=== PATIENT | male | born 1970 | race Caucasian/White ===

== ENCOUNTER 2016-11-12 19:47 | Observation (INO) | payer SELFPAY ==
[~2016-11-12] VITALS: Ht 185.4 cm; Wt 80.0 kg
[2016-11-12 19:50] VITALS: BP 117/70; PULSE 80; RESP 16; TEMP 97.7; O2SAT 100
[2016-11-12] MEDS ORDERED: SODIUM CHLOR 0.9% 1000 ML INJ 1,000 ML IV ONE ×2 (19:55→20:00)
[2016-11-12] MEDS ORDERED: NALOXONE HCL 2 MG/2 ML VIAL IV PUSH ONE (20:00)
[2016-11-12] MEDS ORDERED: SODIUM CHLORIDE 0.9% FLUSH 5 ML FLUSH IVF PRN (20:00)
[2016-11-12] MEDS ORDERED: SERO400T PO (20:15)
[2016-11-12 20:20] VITALS: O2SAT 96
[2016-11-12] MEDS ORDERED: PROPOFOL 1000 MG/100 ML INJ 100 ML ONE ×2 (20:20→20:21)
[2016-11-12] MEDS ORDERED: NALOXONE INJ 4 MG in DEXTROSE 5% IN WATER INJ 246 ML IV SCH ×2 (20:30)
--- NOTE | 2016-11-12 20:32 | RADRPT ---
EXAM DATE/TIME: 11/12/2016 19:59 [facility] COMPARISON: CHEST SINGLE AP, July 19, 2016, 20:36. INDICATIONS : Post Procedure MEDICAL HISTORY : Unobtainable. SURGICAL HISTORY : Unobtainable. ENCOUNTER: Initial ACUITY: 1 day PAIN SCORE: Non-responsive. LOCATION: Bilateral chest FINDINGS: A single view of the chest demonstrates endotracheal tube in satisfactory position. NG tube in the st omach. There is right perihilar airspace consolidation. Minimal left basilar opacity as well. No effu mike or pneumothorax. CONCLUSION: 1. Endotracheal tube and nasogastric tube in satisfactory position. Right perihilar airspace consolid ation. Bobby Edmond MD on November 12, 2016 at 20:30 Board Certified Radiologist. This report was verified electronically.
[2016-11-12 20:35] LABS: AMPHETAMINE, URINE NEG (NEG); BARBITURATES, URINE NEG (NEG); COCAINE, URINE NEG (NEG)
[2016-11-12 20:38] LABS: AUTOMATED NEUTROPHIL # 6.4 TH/MM3 (1.8-7.7); BASOPHIL # 0.1 TH/MM3 (0-0.2); BASOPHIL % 0.9 % (0.0-2.0); EOSINOPHIL # 0.1 TH/MM3 (0-0.4); EOSINOPHIL % 1.4 % (0.0-4.0); HEMATOCRIT 37.9 % (39.0-51.0); HEMO FLAGS DIFF FINAL; LYMPHOCYTE # 1.6 TH/MM3 (1.0-4.8); MEAN CELL VOLUME 91.3 FL (80.0-100.0); MEAN CORPUSCULAR HEMOGLOBIN 30.9 PG (27.0-34.0); MEAN CORPUSCULAR HGB CONC 33.8 % (32.0-36.0); MONO % 6.9 % (0.0-8.0); NEUT % 72.8 % (16.0-70.0); PLATELET COUNT 232 TH/MM3 (150-450); RED BLOOD COUNT 4.14 MIL/MM3 (4.50-5.90); RED CELL DISTRIBUTION WIDTH 13.6 % (11.6-17.2); WHITE BLOOD COUNT 8.8 TH/MM3 (4.0-11.0)
[2016-11-12 20:39] LABS: BLOOD, URINE NEG (NEG); COMMENT (UR) CULT NOT INDICATED; CULTURE IF INDICATED CULT NOT INDICATED; GLUCOSE,URINE TRACE mg/dL (NEG); HYALINE CAST, URINE 2 /lpf (RARE); KETONE, URINE NEG (NEG); MUCUS URINE FEW /lpf (OCC); NITRITE,URINE NEG (NEG); SQUAMOUS EPITHELIAL CELL URINE <1 /hpf (0-5); URINE COLOR YELLOW (YELLW/STRAW)
[2016-11-12 20:43] VITALS: BP 163/115; PULSE 93; RESP 20; O2SAT 99
[2016-11-12 21:10] LABS: ANION GAP 10 MEQ/L (5-15)
[2016-11-12 21:15] LABS: ACETAMINOPHEN LESS THAN 2.0 MCG/ML (10.0-30.0); ALKALINE PHOSPHATASE 66 U/L (45-117); ALT (GPT) 45 U/L (12-78); AST (GOT) 47 U/L (15-37); BICARBONATE 24.9 MEQ/L (21.0-32.0); BLOOD UREA NITROGEN 17 MG/DL (7-18); CHLORIDE 105 MEQ/L (98-107); CREATINE KINASE 744 U/L (39-308); GLOMERULAR FILTRATION RATE 51 ML/MIN (>89); POTASSIUM 3.7 MEQ/L (3.5-5.1); SODIUM (NA) 140 MEQ/L (136-145); TOTAL BILIRUBIN ADULT 0.3 MG/DL (0.2-1.0)
[2016-11-12 21:41] LABS: CKMB 7.2 NG/ML (0.5-3.6)
[2016-11-12 21:48] LABS: BLOOD GAS BASE EXCESS -1.1 mmol/L (-2-2); BLOOD GAS CARBOXYHEMOGLOBIN 2.2 % (0-4); BLOOD GAS HCO3 25 mmol/L (22-26); BLOOD GAS METHEMOGLOBIN 1.9 % (0-2); BLOOD GAS O2 HGB SATURATION 95 % (90-100); BLOOD GAS OXYGEN CONTENT 17.6 Vol % (12.0-20.0); BLOOD GAS PCO2 53 mmHg (38-42); BLOOD GAS PO2 238 mmHG (61-120); BLOOD GAS TOTAL HGB 12.8 G/DL (12.0-16.0); TEMP CORR TO 98.6
[2016-11-12 21:49] LABS: CRITICAL VALUE YES; DRAW SITE RT RADIAL; FIO2 80 %; NUMBER OF ARTERIAL PUNCTURES 1; OXYGEN DEVICE VENTILATOR; STAT YES; ULNAR PULSE PRESENT; VENT SETTINGS AC16/500 5 PEEP
--- NOTE | 2016-11-12 22:03 | PD ---
HPI Chief Complaint: Alcohol/Drug Intoxication Time Seen by Provider: 19:55 Travel History International Travel<30 days: No Contact w/Intl Traveler<30days: No History of Present Illness HPI The patient is 46 years old. He arrives intubated by EMS. He was walking up stairs in his house and collapsed. His heard a thud and called EMS. She found him unresponsive. Evidently he was cyanotic from the shoulders up. EMS reports GCS 3 on scene with apnea. Pinpoint pupils were observed and Narcan was administered however there is no improvement. Endotracheal tube was placed a 7.5 at 22.5 cm. Initial O2 sats are 83%. The end tidal carbon dioxide was 60 initially. Agonal respirations were observed. No asystole/pulselessness was observed. 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 He snorted the supplement. [facility] Past Medical History Medical History: Denies Significant Hx Depression: Yes (untreated depression) Diminished Hearing: No Psychiatric: Yes Past Surgical History Surgical History: No Previous Surgery Social History Tobacco Use: Yes Substance Use: Yes (DCK) Allergies-Medications (Allergen,Severity, Reaction): Coded Allergies: No Known Allergies (Verified , 11/12/16) Reported Meds & Prescriptions Reported Meds & Active Scripts Active Reported Seroquel (Quetiapine Fumarate) 400 Mg Tab 800 Mg PO HS Review of Systems Except as stated in HPI: all other systems reviewed are Neg Physical Exam Narrative GENERAL: 46 yo M, WNWD, muscular habitus SKIN: Warm and dry. HEAD: Atraumatic. Normocephalic. EYES: Pupils pinpoint. They are responsive to light. ENT: No nasal bleeding or discharge. Mucous membranes pink and moist. NECK: Trachea midline. No JVD. CARDIOVASCULAR: Regular rate and rhythm. No murmur appreciated. RESPIRATORY: Intubated. Breath sounds present bilaterally. GASTROINTESTINAL: Abdomen soft, non-tender, nondistended. Hepatic and splenic margins not palpable. MUSCULOSKELETAL: No obvious deformities. No clubbing. No cyanosis. No edema. NEUROLOGICAL: GCS 3T. PSYCHIATRIC: Unable to assess Data Data Last Documented VS Vital Signs Date Time Temp Pulse Resp B/P Pulse Ox O2 Delivery O2 Flow Rate FiO2 11/12/16 20:43 93 20 163/115 99 Room Air 11/12/16 20:20 4.00 11/12/16 20:19 45 11/12/16 19:50 97.7 Orders Electrocardiogram (11/12/16 19:55) Complete Blood Count With Diff (11/12/16 19:55) Comprehensive Metabolic Panel (11/12/16 19:55) Urinalysis - C+S If Indicated (11/12/16 19:55) Chest, Single Ap (11/12/16 19:55) Ct Brain W/O Iv Contrast(Rout) (11/12/16 19:55) Arterial Blood Gas (Abg) (11/12/16 19:55) Blood Glucose (11/12/16 19:55) Iv Access Insert/Monitor (11/12/16 19:55) Ecg Monitoring (11/12/16 19:55) Oximetry (11/12/16 19:55) Smith-Gastric Tube Insert/Mon (11/12/16 19:55) Urinary Catheter Insert/Apply (11/12/16 19:55) Psych Screen (11/12/16 19:55) Sodium Chloride 0.9% Flush (Ns Flush) (11/12/16 20:00) Sodium Chlor 0.9% 1000 Ml Inj (Ns 1000 M (11/12/16 19:55) Call Poison Control (11/12/16 19:55) Drug Screen, Random Urine (11/12/16 19:55) Alcohol (Ethanol) (11/12/16 19:55) Salicylates (Aspirin) (11/12/16 19:55) Tylenol (Acetaminophen) (11/12/16 19:55) Creatine Kinase (Cpk) (11/12/16 19:55) Troponin I (11/12/16 19:55) Ct Pulmonary Angiogram (11/12/16 19:55) Sodium Chlor 0.9% 1000 Ml Inj (Ns 1000 M (11/12/16 20:00) Naloxone Inj (Narcan Inj) (11/12/16 20:00) Propofol 1000 Mg/100 Ml Inj (Diprivan 10 (11/12/16 20:20) Propofol 1000 Mg/100 Ml Inj (Diprivan 10 (11/12/16 20:21) Naloxone Inj (Narcan Inj) (11/12/16 20:30) CKMB (11/12/16 20:00) CKMB% (11/12/16 20:00) Admit Order (Ed Use Only) (11/12/16 22:27) Labs Laboratory Tests Test 11/12/16 11/12/16 20:00 20:05 White Blood Count 8.8 TH/MM3 Red Blood Count 4.14 MIL/MM3 Hemoglobin 12.8 GM/DL Hematocrit 37.9 % Mean Corpuscular Volume 91.3 FL Mean Corpuscular Hemoglobin 30.9 PG Mean Corpuscular Hemoglobin 33.8 % Concent Red Cell Distribution Width 13.6 % Platelet Count 232 TH/MM3 Mean Platelet Volume 8.5 FL Neutrophils (%) (Auto) 72.8 % Lymphocytes (%) (Auto) 18.0 % Monocytes (%) (Auto) 6.9 % Eosinophils (%) (Auto) 1.4 % Basophils (%) (Auto) 0.9 % Neutrophils # (Auto) 6.4 TH/MM3 Lymphocytes # (Auto) 1.6 TH/MM3 Monocytes # (Auto) 0.6 TH/MM3 Eosinophils # (Auto) 0.1 TH/MM3 Basophils # (Auto) 0.1 TH/MM3 CBC Comment DIFF FINAL Differential Comment Urine Color YELLOW Urine Turbidity CLEAR Urine pH 6.0 Urine Specific [place] 1.035 Urine Protein 30 mg/dL Urine Glucose (UA) TRACE mg/dL Urine Ketones NEG mg/dL Urine Occult Blood NEG Urine Nitrite NEG Urine Bilirubin NEG Urine Urobilinogen 2.0 MG/DL Urine Leukocyte Esterase NEG Urine RBC 3 /hpf Urine WBC 2 /hpf Urine Squamous Epithelial <1 /hpf Cells Urine Hyaline Casts 2 /lpf Urine Mucus FEW /lpf Microscopic Urinalysis Comment CULT NOT INDICATED Sodium Level 140 MEQ/L Potassium Level 3.7 MEQ/L Chloride Level 105 MEQ/L Carbon Dioxide Level 24.9 MEQ/L Anion Gap 10 MEQ/L Blood Urea Nitrogen 17 MG/DL Creatinine 1.48 MG/DL Estimat Glomerular Filtration 51 ML/MIN Rate Random Glucose 210 MG/DL Calcium Level 7.5 MG/DL Total Bilirubin 0.3 MG/DL Aspartate Amino Transf 47 U/L (AST/SGOT) Alanine Aminotransferase 45 U/L (ALT/SGPT) Alkaline Phosphatase 66 U/L Total Creatine Kinase 744 U/L Creatine Kinase MB 7.2 NG/ML Creatine Kinase MB % 1.0 % Troponin I 0.02 NG/ML Total Protein 6.3 GM/DL Albumin 2.9 GM/DL Salicylates Level LESS THAN 1.7 MG/DL Urine Opiates Screen NEG Acetaminophen Level LESS THAN 2.0 MCG/ML Urine Barbiturates Screen NEG Urine Amphetamines Screen NEG Urine Benzodiazepines Screen POS Urine Cocaine Screen NEG Urine Cannabinoids Screen POS Ethyl Alcohol Level 4 MG/DL Blood Gas Puncture Site RT RADIAL Blood Gas Patient Temperature 98.6 Blood Gas HCO3 25 mmol/L Blood Gas Base Excess -1.1 mmol/L Blood Gas Oxygen Saturation 95 % Arterial Blood pH 7.29 Arterial Blood Partial 53 mmHg Pressure CO2 Arterial Blood Partial 238 mmHG Pressure O2 Arterial Blood Oxygen Content 17.6 Vol % Arterial Blood 2.2 % Carboxyhemoglobin Arterial Blood Methemoglobin 1.9 % Blood Gas Hemoglobin 12.8 G/DL Oxygen Delivery Device VENTILATOR Blood Gas Ventilator Setting AC16/500 5 PEEP Blood Gas Inspired Oxygen 80 % MDM Medical Decision Making Medical Screen Exam Complete: Yes Emergency Medical Condition: Yes Differential Diagnosis Hypoxia, arrhythmia, multi organ failure Narrative Course CBC & BMP Diagram 11/12/16 20:00 AST 47 Total creatinine kinase 744 Troponin 0.02 Albumin 2.9 Toxicology positive for benzodiazepines and cannabinoids Tylenol less than 2 Salicylates less than 1.7 Alcohol 4 AB.29/53/25 base excess -1.1 ABG PO2 238 at assist control 16/50 +5 of PEEP with FiO2 80% Last 24 hours Impressions Chest X-Ray 11/12/161954 Signed Impressions: Service Date/Time: Saturday, November 12, 2016 19:59 - CONCLUSION: 1. Endotracheal tube and nasogastric tube in satisfactory position. Right perihilar airspace consolidation. Bobby Edmond MD Pt received 2mg IV Narcan and immediately awoke and tried to self extubate. He was manually restrained and we're able to express with the patient at the bedside. A Narcan drip was initiated. 2 L saline transfused. Case was discussed with hospitalist who requested pack press operator management. Patient reassessed at approximately 9:50 PM: Awake and alert 4. 148/84, HR 90, 96% on RA appropriate anxiety. D/w Dr Rodriguez for pack press operator service. Critical Care Narrative Aggregate critical care time was 45 minutes. Time to perform other separately billable procedures was not included in the critical care time. My time did not include minutes spent treating any other patients simultaneously or on activities that did not directly contribute to the patient's treatment. The services I provided to this patient were to treat and/or prevent clinically significant deterioration that could result in: Multiorgan failure, hypoxic respiratory I provided critical care services requiring my management, as noted below: Chart data review, documentation time, medication orders and management, vital sign assessments/reviewing monitor data, ordering and reviewing lab tests, ordering and interpreting/reviewing x-rays and diagnostic studies, care of the patient and discussion of the patient with the admitting physicians. Diagnosis Primary Impression: Acute respiratory failure with hypoxia Additional Impressions: Polysubstance abuse LOC (loss of consciousness) Opioid overdose Qualified Code: T40.2X1A - Opioid overdose, accidental or unintentional, initial encounter Admitting Information Admitting Physician Requests: Saleem Mccarty MD Nov 12, 2016 22:03
[2016-11-12] MEDS ORDERED: IOHEXOL 350 MG/ML 10 ML VIAL (for RAD DIAG) IV ONE (23:46)
[2016-11-12] MEDS ORDERED: SODIUM CHLOR 0.9% 1000 ML INJ 1,000 ML IV SCH (23:49)
--- NOTE | 2016-11-12 23:49 | HHI.HP ---
HPI Service Critical Care Medicine Primary Care Physician Unknown Admission Diagnosis OD, Resp Failure Diagnosis: Travel History International Travel<30 Days: No Contact w/Intl Traveler <30 Da: No History of Present Illness History of Present Illness HPI The patient is 46 years old. He arrived intubated by EMS. He was walking up stairs in his house and collapsed. His heard a thud and called EMS. She found him unresponsive. Evidently he was cyanotic from the shoulders up. EMS reports GCS 3 on scene with apnea. Pinpoint pupils were observed and Narcan was administered however there is no improvement. Endotracheal tube was placed a 7.5 at 22.5 cm by EMS. Initial O2 sats are 83%. The end tidal carbon dioxide was 60 initially. Agonal respirations were observed. No asystole/ pulselessness was observed. 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 He snorted the supplement. Patient was initially placed on mechanical ventilation following arrival in the ER. He received 2 mg of Narcan IV and his neurologic status improved shortly after. Patient was extubated in the ER Y Dr. Walsh and was placed on a Narcan drip which was subsequently stopped. Critical care was contacted and I evaluated the patient in the ER. At that time he had been off the Narcan drip for about 40 minutes. Patient was completely awake and alert, knew he was in the hospital could give me the date, month and year and stated that this was the second time he used this supplement. He denied any shortness of breath, chest pain, dizziness, visual disturbance, focal weakness, nausea, abdominal pain. History was obtained by reviewing records, discussion with Dr. Stark as well as patient. [facility] Past Medical History Medical History: Denies Significant Hx Depression: Yes (untreated depression) Diminished Hearing: No Psychiatric: Yes Past Surgical History Surgical History: No Previous Surgery Social History Tobacco Use: Yes Substance Use: Yes (DCK) Allergies-Medications (Allergen,Severity, Reaction): Coded Allergies: No Known Allergies (Verified , 11/12/16) Reported Meds & Prescriptions Reported Meds & Active Scripts Active Reported Seroquel (Quetiapine Fumarate) 400 Mg Tab 800 Mg PO HS Review of Systems Except as stated in HPI: all other systems reviewed are Neg Physical Exam Vital Signs Vital Signs Date Time Temp Pulse Resp B/P Pulse Ox O2 Delivery O2 Flow Rate FiO2 11/12/16 20:43 93 20 163/115 99 Room Air 11/12/16 20:20 96 Nasal Cannula 4.00 11/12/16 20:20 96 Nasal Cannula 4 11/12/16 20:19 45 11/12/16 20:04 80 11/12/16 19:50 100 80 11/12/16 19:50 97.7 80 16 117/70 100 Physical Exam Narrative GENERAL: 46 yo M, WNWD, muscular habitus SKIN: Warm and dry. HEAD: Atraumatic. Normocephalic. EYES: Pupils 3mm, reactive to light. ENT: No nasal bleeding or discharge. Mucous membranes pink and moist. NECK: Trachea midline. No JVD. CARDIOVASCULAR: Regular rate and rhythm. No murmur appreciated. RESPIRATORY: Good air entry bilaterally, no wheezing or crackles GASTROINTESTINAL: Abdomen soft, non-tender, nondistended. Hepatic and splenic margins not palpable. MUSCULOSKELETAL: No obvious deformities. No clubbing. No cyanosis. No edema. NEUROLOGICAL: Awake alert oriented 3, nonfocal grossly. Laboratory Laboratory Tests Test 11/12/16 11/12/16 20:00 20:05 White Blood Count 8.8 Red Blood Count 4.14 Hemoglobin 12.8 Hematocrit 37.9 Mean Corpuscular Volume 91.3 Mean Corpuscular Hemoglobin 30.9 Mean Corpuscular Hemoglobin 33.8 Concent Red Cell Distribution Width 13.6 Platelet Count 232 Mean Platelet Volume 8.5 Neutrophils (%) (Auto) 72.8 Lymphocytes (%) (Auto) 18.0 Monocytes (%) (Auto) 6.9 Eosinophils (%) (Auto) 1.4 Basophils (%) (Auto) 0.9 Neutrophils # (Auto) 6.4 Lymphocytes # (Auto) 1.6 Monocytes # (Auto) 0.6 Eosinophils # (Auto) 0.1 Basophils # (Auto) 0.1 CBC Comment DIFF FINAL Differential Comment Urine Color YELLOW Urine Turbidity CLEAR Urine pH 6.0 Urine Specific [place] 1.035 Urine Protein 30 Urine Glucose (UA) TRACE Urine Ketones NEG Urine Occult Blood NEG Urine Nitrite NEG Urine Bilirubin NEG Urine Urobilinogen 2.0 Urine Leukocyte Esterase NEG Urine RBC 3 Urine WBC 2 Urine Squamous Epithelial <1 Cells Urine Hyaline Casts 2 Urine Mucus FEW Microscopic Urinalysis Comment CULT NOT INDICATED Sodium Level 140 Potassium Level 3.7 Chloride Level 105 Carbon Dioxide Level 24.9 Anion Gap 10 Blood Urea Nitrogen 17 Creatinine 1.48 Estimat Glomerular Filtration 51 Rate Random Glucose 210 Calcium Level 7.5 Total Bilirubin 0.3 Aspartate Amino Transf 47 (AST/SGOT) Alanine Aminotransferase 45 (ALT/SGPT) Alkaline Phosphatase 66 Total Creatine Kinase 744 Creatine Kinase MB 7.2 Creatine Kinase MB % 1.0 Troponin I 0.02 Total Protein 6.3 Albumin 2.9 Salicylates Level LESS THAN 1.7 Urine Opiates Screen NEG Acetaminophen Level LESS THAN 2.0 Urine Barbiturates Screen NEG Urine Amphetamines Screen NEG Urine Benzodiazepines Screen POS Urine Cocaine Screen NEG Urine Cannabinoids Screen POS Ethyl Alcohol Level 4 Blood Gas Puncture Site RT RADIAL Blood Gas Patient Temperature 98.6 Blood Gas HCO3 25 Blood Gas Base Excess -1.1 Blood Gas Oxygen Saturation 95 Arterial Blood pH 7.29 Arterial Blood Partial 53 Pressure CO2 Arterial Blood Partial 238 Pressure O2 Arterial Blood Oxygen Content 17.6 Arterial Blood 2.2 Carboxyhemoglobin Arterial Blood Methemoglobin 1.9 Blood Gas Hemoglobin 12.8 Oxygen Delivery Device VENTILATOR Blood Gas Ventilator Setting AC16/500 5 PEEP Blood Gas Inspired Oxygen 80 Result Diagram: 11/12/16199911/12/161999 Imaging Last Impressions Chest X-Ray 11/12/161954 Signed Impressions: Service Date/Time: Saturday, November 12, 2016 19:59 - CONCLUSION: 1. Endotracheal tube and nasogastric tube in satisfactory position. Right perihilar airspace consolidation. Bobby Edmond MD Assessment and Plan Assessment and Plan 46-year-old male with: Overdose with stimulant Encephalopathy which is improved Acute respiratory failure (initially on mechanical ventilation) : Resolved Plan: Neuro: Narcan drip held. Continue to follow neuro status. Patient will be kept in observation unit. Cardiovascular: IV hydration, watch for hypotension. Pulmonary: Supplemental O2 if needed. Bronchodilators when necessary. Extubated earlier. GI/liver: We will order a by mouth diet. Zofran when necessary for nausea. Renal/: IV hydration, follow BUN/creatinine, urine output. ID: No antibiotics at this time Endocrine: Watch for hyperglycemia Prophylaxis: SCDs for DVT prophylaxis, mobilize patient early tomorrow morning. Discussed with Dr. Walsh in ER. Patient will be kept as observation status. Discussed with Dr. Patino was covering for the hospitalist service. Informed her regarding patient being kept under observation status with transfer to hospitalist service. She is aware and will probably discharge the patient in the morning. Patient will not be admitted to the ICU at this time as his neurologic status remains improved off Narcan drip. Discussed Condition With Dr. Walsh, Dr. Patino. Patient and his . Mike Rodriguez MD Nov 12, 2016 23:49
[2016-11-13] MEDS ORDERED: SODIUM CHLORIDE 0.9% FLUSH 5 ML FLUSH FLUSH PRN
[2016-11-13] MEDS ORDERED: METOCLOPRAMIDE HCL 10 MG/2 ML VIAL IV PUSH PRN
[2016-11-13] MEDS ORDERED: NALOXONE HCL 0.4 MG/ML AMP IV PRN
[2016-11-13] MEDS ORDERED: DOCUSATE SODIUM 100 MG CAP PO SCH
[2016-11-13] MEDS ORDERED: ONDANSETRON HCL 4 MG/2 ML VIAL IVP PRN
--- NOTE | 2016-11-13 | RADRPT ---
EXAM DATE/TIME: 11/12/2016 23:43 [facility] COMPARISON: CHEST SINGLE AP, November 12, 2016, 19:59. INDICATIONS : Found unresponsive. Respiratory distress. IV CONTRAST: 74 cc Omnipaque 350 (iohexol) IV RADIATION DOSE: 23.47 CTDIvol (mGy) MEDICAL HISTORY : None SURGICAL HISTORY : None. ENCOUNTER: Initial ACUITY: 1 day PAIN SCALE: 0/10 LOCATION: chest TECHNIQUE: Volumetric scanning of the chest was performed using a pulmonary embolism protocol MIP images were re constructed. Using automated exposure control and adjustment of the mA and/or kV according to patien t size, radiation dose was kept as low as reasonably achievable to obtain optimal diagnostic quality images. FINDINGS: Examination of the pulmonary vasculature demonstrates good filling of the main, lobar and segmental b ranches. There are no filling defects to suggest pulmonary embolism. Multiplanar reconstructions are also unremarkable. There is patchy alveolar disease bilaterally compatible with edema or pneumonia. No pleural effusions are identified. No pulmonary nodules are identified. Examination of the mediastinum demonstrates no abnormally enlarged lymph nodes by CT criteria. No axillary or hilar abnormalities are identified. Co ronary artery calcifications are not present. The visualized upper abdomen demonstrates no abnormalit y. CONCLUSION: 1. No evidence of pulmonary embolism. 2. Bibasilar edema versus pneumonia Reymundo Rivero MD on November 12, 2016 at 23:57 Board Certified Radiologist. This report was verified electronically.
--- NOTE | 2016-11-13 00:04 | RADRPT ---
EXAM DATE/TIME: 11/12/2016 23:39 [facility] COMPARISON: CT BRAIN W/O CONTRAST, July 19, 2016, 20:20. INDICATIONS : Found unresponsive; altered mental status. RADIATION DOSE: 52.57 CTDIvol (mGy) MEDICAL HISTORY : None SURGICAL HISTORY : None. ENCOUNTER: Initial ACUITY: 1 day PAIN SCALE: 0/10 LOCATION: cranial TECHNIQUE: Multiple contiguous axial images were obtained of the head. Using automated exposure control and adj ustment of the mA and/or kV according to patient size, radiation dose was kept as low as reasonably a chievable to obtain optimal diagnostic quality images. FINDINGS: CEREBRUM: The ventricles are normal for age. No evidence of midline shift, mass lesion, hemorrhage or acute in farction. No extra-axial fluid collections are seen. POSTERIOR FOSSA: The cerebellum and brainstem are intact. The 4th ventricle is midline. The cerebellopontine angle i s unremarkable. EXTRACRANIAL: The visualized portion of the orbits is intact. There is benign-appearing mucosal disease in the maxi llary antra bilaterally. SKULL: The calvaria is intact. No evidence of skull fracture. CONCLUSION: 1. No evidence of acute intracranial pathology. No masses are identified. Reymundo Rivero MD on November 13, 2016 at 0:01 Board Certified Radiologist. This report was verified electronically.
[2016-11-13 02:50] VITALS: BP 140/60; PULSE 73; RESP 18; O2SAT 99
[2016-11-13 03:20] VITALS: BP 129/70; PULSE 80; RESP 20; TEMP 98.3; O2SAT 94
[2016-11-13 03:25] VITALS: PULSE 76
--- NOTE | 2016-11-13 04:46 | HHI.PR ---
Subjective Remarks noted to be sweating - reports this is his normal Objective Vital Signs Date Time Temp Pulse Resp B/P Pulse Ox O2 Delivery O2 Flow Rate FiO2 11/13/16 03:25 76 11/13/16 03:20 98.3 80 20 129/70 94 11/13/16 02:50 73 18 140/60 99 Room Air 11/12/16 20:43 93 20 163/115 99 Room Air 11/12/16 20:20 96 Nasal Cannula 4.00 11/12/16 20:20 96 Nasal Cannula 4 11/12/16 20:19 45 11/12/16 20:04 80 11/12/16 19:50 100 80 11/12/16 19:50 97.7 80 16 117/70 100 I/O 11/12/16 11/12/16 11/12/16 11/13/16 11/13/16 11/13/16 07:00 15:00 23:00 07:00 15:00 23:00 Intake Total 100 ml Balance 100 ml Intake IV Total 100 ml Result Diagram: 11/12/16199911/12/161999 Imaging Last 48 hours Impressions Chest X-Ray 11/12/161954 Signed Impressions: Service Date/Time: Saturday, November 12, 2016 19:59 - CONCLUSION: 1. Endotracheal tube and nasogastric tube in satisfactory position. Right perihilar airspace consolidation. Bobby Edmond MD Objective Remarks Awake, alert, oriented. Sleeping in bed. Skin: Diaphoretic. CVS: Regular heart rate and rhythm. No murmur appreciated. Lungs: Good equal air entry bilaterally. No wheezing or rales. Abdomen: Soft, nontender, no rebound, no guarding. Extremities: No calf asymmetry or edema. No track pedro. Neurology: Appropriate mood and affect. Pleasant. Awake, alert, oriented. Motor and sensory grossly normal. No focal deficits. A/P Problem List: (1) Polysubstance abuse ICD Code: F19.10 (2) Acute respiratory failure with hypoxia ICD Code: J96.01 Assessment and Plan Impression: Syncopesecondary to dietary supplements/ stimulants adverse reaction Use of dietary/exercise supplementspatient reports that he drank which includes mixture of multiple dietary supplements for the purpose of exercise enhancement. He reports this includes caffeine powder, creatinine powder, beta alanine, Yoheme, DMHA, and citrate malate as a stimulant. Respiratory failurerequired intubation on the field. Extubated while in ER as his mentation improved after Narcan treatment. Plan: Patient was evaluated by remote operations producer at the bedside overnight. Patient has been awake, alert, oriented since extubation prior to the remote operations producer arrival. Narcan drip was already discontinued by then. It has been 8 hours since. Patient is noted to be ambulating well in the observation unit, able to tolerate by mouth intake. Patient states he takes the above regimen for exercise enhancement. He states DMHA is the only new item on the list that he has not taken previously. He suspects this is the cause of all this. He denies any suicidal or homicidal ideation. He denies snorting the powders. He states he simply mixed them and drank. Denies having any ketamine in these supplements - though he cant be sure of contaminants. Patient is hemodynamically stable. Discharge patient home today. Patient is advised to wait until the comes and pick him up. Advised to follow-up with primary care doctor. If there is any concerning symptoms, advised to come back to hospital. Hydrate thoroughly. Discharge Planning discharge today now, soon as comes to pick him up - around 6:00a.Rory Clifford MD Nov 13, 2016 04:46
[2016-11-13] MEDS ORDERED: SODIUM CHLORIDE 0.9% FLUSH 5 ML FLUSH FLUSH SCH (09:00)
--- NOTE | 2016-11-13 14:15 | EKG ---
Date Performed: 11/12/2016 Time Performed: 20:08:19 PTAGE: 46 years EKG: Sinus rhythm Prominent precordial voltage Since previous tracing, HR is faster, as previous HR was 41. Previous t racing showed early repolarization changes with prominent voltage, but no repolarization changes are seen on this tracing ABNORMAL ECG PREVIOUS TRACING : 07/19/2016 22.20 DOCTOR: Ward Galeano Interpretating Date/Time 11/13/2016 15:31:40
== END 2016-11-13 07:52 | disposition home or self-care (01) ==
LOC: NEPE 19:47 → NEDA 22:29 → INTOOBSV 22:29 → NEPFCDU 11-13 03:03 → UNDODISIN 11-13 07:52
PROVIDERS: ADMIT Hospitalist; ATTEND Hospitalist
DX: T40.2X1A Poisoning by other opioids, accidental (unintentional), initial encounter (principal); J96.01 Acute respiratory failure with hypoxia; F41.9 Anxiety disorder, unspecified; F32.9 Major depressive disorder, single episode, unspecified; R94.31 Abnormal electrocardiogram [ECG] [EKG]; Z72.0 Tobacco use
CPT/HCPCS: 36600; 51702; 70450; 71010; 71275; 80053; 80307; 80320; 81001; 82550; 82552; 82805; 84484; 85025; 93005; 96361; 96365; 96376; 99291; G0378; J2310; J7030; J7060; Q9967; 80329; G0480

== ENCOUNTER 2016-11-22 22:22 | Inpatient (IN) | payer SELFPAY ==
[~2016-11-22] VITALS: Ht 182.9 cm; Wt 97.6 kg
[~2016-11-22 22:22] MED LIST: SERO400T PO
[2016-11-22] MEDS ORDERED: LORazepam 2 MG/ML VIAL ONE (22:28)
[2016-11-22 22:30] VITALS: RESP 40; O2SAT 94
[2016-11-22] MEDS ORDERED: LORazepam 2 MG/ML VIAL IM ONE ×3 (22:30→22:45)
[2016-11-22 22:36] VITALS: BP 188/79; PULSE 74; RESP 40; TEMP 98.7; O2SAT 100
[2016-11-22] MEDS ORDERED: SODIUM CHLORIDE 0.9% FLUSH 5 ML FLUSH IVF PRN (22:45)
[2016-11-22] MEDS ORDERED: LORazepam 2 MG/ML VIAL IV PUSH ONE ×4 (23:00→23:15)
[2016-11-22] MEDS ORDERED: SODIUM CHLOR 0.9% 1000 ML INJ 1,000 ML IV ONE ×2 (23:15)
[2016-11-22 23:19] LABS: AUTOMATED NEUTROPHIL # 18.5 TH/MM3 (1.8-7.7); BASOPHIL # 0.1 TH/MM3 (0-0.2); BASOPHIL % 0.5 % (0.0-2.0); EOSINOPHIL % 0.1 % (0.0-4.0); HEMATOCRIT 41.7 % (39.0-51.0); HEMO FLAGS DIFF FINAL; LYMPH % 8.4 % (9.0-44.0); LYMPHOCYTE # 1.8 TH/MM3 (1.0-4.8); MEAN CELL VOLUME 87.3 FL (80.0-100.0); MEAN CORPUSCULAR HEMOGLOBIN 30.2 PG (27.0-34.0); MEAN CORPUSCULAR HGB CONC 34.6 % (32.0-36.0); MONO % 6.7 % (0.0-8.0); NEUT % 84.3 % (16.0-70.0); PLATELET COUNT 511 TH/MM3 (150-450); RED BLOOD COUNT 4.78 MIL/MM3 (4.50-5.90); RED CELL DISTRIBUTION WIDTH 13.2 % (11.6-17.2)
[2016-11-22 23:28] LABS: APTT (PATIENT) 27.9 SEC (24.3-30.1); INTERNATIONAL NORMALIZED RATIO 1.1 RATIO
[2016-11-22 23:45] LABS: ACETAMINOPHEN LESS THAN 2.0 MCG/ML (10.0-30.0); ALKALINE PHOSPHATASE 65 U/L (45-117); ALT (GPT) 41 U/L (12-78); ANION GAP 16 MEQ/L (5-15); AST (GOT) 33 U/L (15-37); BICARBONATE 15.6 MEQ/L (21.0-32.0); BLOOD UREA NITROGEN 14 MG/DL (7-18); CHLORIDE 92 MEQ/L (98-107); CREATINE KINASE 415 U/L (39-308); GLOMERULAR FILTRATION RATE 70 ML/MIN (>89); TOTAL BILIRUBIN ADULT 0.7 MG/DL (0.2-1.0)
[2016-11-22 23:48] LABS: POTASSIUM 3.7 MEQ/L (3.5-5.1)
[2016-11-22 23:50] LABS: SODIUM (NA) 124 MEQ/L (136-145)
[2016-11-23] VITALS (10 sets, daily range): BP systolic 137–184; BP diastolic 63–108; PULSE 7–81; RESP 16–27; TEMP 98.2–98.8; O2SAT 95–100
[2016-11-23 00:02] LABS: CKMB 8.3 NG/ML (0.5-3.6)
--- NOTE | 2016-11-23 00:12 | HHI.HP ---
HPI Service Critical Care Medicine Primary Care Physician Unknown Admission Diagnosis Diagnosis: Travel History International Travel<30 Days: No Contact w/Intl Traveler <30 Da: No Traveled to Known Affected Are: No History of Present Illness 46-year-old male who likes to experiment with shoe designer drugs presents for altered mental status. According to EMS patient's called 911 because the patient admits smoking K2. Patient was recently admitted November 12 after another ingestion of unknown substance, he required to be intubated and subsequently was extubated fairly quickly and left the hospital within 23 hours. In the emergency department he was extremely agitated and tremulous he received 8 mg of Ativan and 50 mg of IV Benadryl. 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 Past Surgical History None Reported Medications Reported Meds & Active Scripts Active Reported Seroquel (Quetiapine Fumarate) 400 Mg Tab 800 Mg PO HS Active Ordered Medications Current Medications Medications (Trade) Dose Ordered Sig/Ray Route PRN Reason Start Time Stop Time Status Last Admin Dose Admin IV Flush 2 ml 2 ml UNSCH PRN IVF FLUSH AFTER USING IV ACCESS 11/22/16 22:45 Sodium Chloride (NS 1000 ml Inj) 1,000 ml @ 185 mls/hr Q5H25M IV 11/23/16 00:54 IV Flush (NS Flush) 2 ml UNSCH PRN IV FLUSH FLUSH AFTER USING IV ACCESS 11/23/16 01:00 IV Flush (NS Flush) 2 ml BID IV FLUSH 11/23/16 09:00 Acetaminophen (Tylenol) 650 mg Q6H PRN PO PAIN 1-10 AND/OR FEVER >101F 11/23/16 01:00 Famotidine (Pepcid Inj) 20 mg Q12HR IV PUSH 11/23/16 09:00 Lorazepam (Ativan Inj) 2 mg Q2H PRN IV Agitation/Sedation 11/23/16 01:00 Ondansetron HCl (Zofran Inj) 4 mg Q6H PRN IV NAUSEA OR VOMITING 11/23/16 01:00 Metoclopramide HCl (Reglan Inj) 10 mg Q6H PRN IV NAUSEA OR VOMITING 11/23/16 01:00 Heparin Sodium (Porcine) (Heparin Inj) 5,000 units Q8H SQ 11/23/16 01:00 Miscellaneous Information 1 [id number] XX 11/23/16 01:00 Chlorhexidine Gluconate (Chlorhexidine 2% Cloth) 3 pack Taper DAILY@04 TOP 11/23/16 04:00 11/19/17 03:59 Chlorhexidine Gluconate (Chlorhexidine 2% Cloth) 3 pack UNSCH PRN TOP HYGIENIC CARE 11/23/16 01:00 Family History Noncontributory 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 Somnolent SKIN: Warm and dry. HEAD: Normocephalic. EYES: No scleral icterus. No injection or drainage. NECK: Supple, trachea midline. No JVD or lymphadenopathy. CARDIOVASCULAR: Regular rate and rhythm without murmurs, gallops, or rubs. RESPIRATORY: Breath sounds equal bilaterally. No accessory muscle use. GASTROINTESTINAL: Abdomen soft, non-tender, nondistended. MUSCULOSKELETAL: No cyanosis, or edema. BACK: Nontender without obvious deformity. No CVA tenderness. EXTREMITIES: Nonfocal Laboratory Laboratory Tests Test 11/22/16 22:44 White Blood Count 22.0 Red Blood Count 4.78 Hemoglobin 14.4 Hematocrit 41.7 Mean Corpuscular Volume 87.3 Mean Corpuscular Hemoglobin 30.2 Mean Corpuscular Hemoglobin 34.6 Concent Red Cell Distribution Width 13.2 Platelet Count 511 Mean Platelet Volume 8.4 Neutrophils (%) (Auto) 84.3 Lymphocytes (%) (Auto) 8.4 Monocytes (%) (Auto) 6.7 Eosinophils (%) (Auto) 0.1 Basophils (%) (Auto) 0.5 Neutrophils # (Auto) 18.5 Lymphocytes # (Auto) 1.8 Monocytes # (Auto) 1.5 Eosinophils # (Auto) 0.0 Basophils # (Auto) 0.1 CBC Comment DIFF FINAL Differential Comment Prothrombin Time 12.0 Prothromb Time International 1.1 Ratio Activated Partial 27.9 Thromboplast Time Salicylates Level LESS THAN 1.7 Sodium Level 124 Potassium Level 3.7 Chloride Level 92 Carbon Dioxide Level 15.6 Anion Gap 16 Blood Urea Nitrogen 14 Creatinine 1.13 Estimat Glomerular Filtration 70 Rate Random Glucose 98 Calcium Level 8.2 Total Bilirubin 0.7 Aspartate Amino Transf 33 (AST/SGOT) Alanine Aminotransferase 41 (ALT/SGPT) Alkaline Phosphatase 65 Total Creatine Kinase 415 Creatine Kinase MB 8.3 Creatine Kinase MB % 2.0 Total Protein 6.8 Albumin 3.2 Thyroid Stimulating Hormone 1.990 3rd Gen Acetaminophen Level LESS THAN 2.0 Ethyl Alcohol Level LESS THAN 3 Result Diagram: 11/22/16224311/22/162243 Assessment and Plan Problem List: (1) Substance abuse ICD Code: F19.10 Status: Acute (2) LOC (loss of consciousness) ICD Code: R40.20 Status: Acute Assessment and Plan Intoxication with stimulant drugs - Ativan when necessary - Geodon - IV fluids - Telemetry - Psych evaluation Junctional rhythm - Continue telemetry - Hemodynamically stable - Follow-up troponins - Series of EKGs DVT GI prophylaxis - Subcutaneous heparin and Pepcid Critical Care: The total critical care time was 35 minutes. Time to perform other separately billable procedures was not included in the critical care time. Babar Cabrera MD Nov 23, 2016 00:12
--- NOTE | 2016-11-23 00:17 | PD ---
HPI Chief Complaint: Altered Mental Status Time Seen by Provider: 22:27 Travel History International Travel<30 days: No Contact w/Intl Traveler<30days: No Traveled to known affect area: No History of Present Illness HPI Patient 46-year-old male presents emergency department for altered mental status. According to EMS patient's called 911 because the patient was acting strange after she saw him snorting/smoking something. Suspicion from EMS is K2. Review the records show the patient was here 2 weeks ago after another ingestion had to be intubated and subsequently was extubated fairly quickly and left the hospital within 23 hours. Patient on arrival is awake and mildly tremulous in all 4 extremities. Does not communicate orally but does scream in pain when a 14-gauge needle was placed in his right AC fossa. PFSH Past Medical History Medical History: Unable to Obtain Anxiety: Yes Depression: No Cancer: No Cardiovascular Problems: No Chemotherapy: No Diminished Hearing: No Endocrine: No Genitourinary: No Immune Disorder: No Musculoskeletal: No Neurologic: No Psychiatric: Yes Respiratory: No Radiation Therapy: No Tetanus Vaccination: Unknown Influenza Vaccination: No Past Surgical History Surgical History: Unable to Obtain Social History Alcohol Use: Yes Tobacco Use: Yes Substance Use: Yes (MARIJUANA) Allergies-Medications (Allergen,Severity, Reaction): Coded Allergies: No Known Allergies (Verified , 11/22/16) Reported Meds & Prescriptions Reported Meds & Active Scripts Active Reported Seroquel (Quetiapine Fumarate) 400 Mg Tab 800 Mg PO HS Review of Systems ROS Limitations: Altered Mental Status Physical Exam Exam Limitations: Altered Mental Status Narrative GENERAL: WD/WN in nad. SKIN: Warm and dry. HEAD: Atraumatic. Normocephalic. EYES: Pupils equal and round. No scleral icterus. No injection or drainage. ENT: No nasal bleeding or discharge. Mucous membranes pink and moist. NECK: Trachea midline. No JVD. CARDIOVASCULAR: Regular rate and rhythm. RESPIRATORY: No accessory muscle use. Clear to auscultation. Breath sounds equal bilaterally. GASTROINTESTINAL: Abdomen soft, non-tender, nondistended. Hepatic and splenic margins not palpable. MUSCULOSKELETAL: Extremities without clubbing, cyanosis, or edema. No obvious deformities. NEUROLOGICAL: Awake and alert. tracks people with eyes. GCS is 12 (E4,M5,V3) PSYCHIATRIC: Appropriate mood and affect; insight and judgment normal. Data Data Last Documented VS Vital Signs Date Time Temp Pulse Resp B/P Pulse Ox O2 Delivery O2 Flow Rate FiO2 11/23/16 00:00 98.6 70 26 146/63 100 Nasal Cannula 2 Orders Lorazepam Inj (Ativan Inj) (11/22/16 22:30) Lorazepam Inj (Ativan Inj) (11/22/16 22:28) Electrocardiogram (11/22/16 22:38) Complete Blood Count With Diff (11/22/16 22:38) Comprehensive Metabolic Panel (11/22/16 22:38) Creatine Kinase (Cpk) (11/22/16 22:38) Prothrombin Time / Inr (Pt) (11/22/16 22:38) Act Partial Throm Time (Ptt) (11/22/16 22:38) Thyroid Stimulating Hormone (11/22/16 22:38) Blood Glucose (11/22/16 22:38) Ecg Monitoring (11/22/16 22:38) Iv Access Insert/Monitor (11/22/16 22:38) Oximetry (11/22/16 22:38) Sodium Chloride 0.9% Flush (Ns Flush) (11/22/16 22:45) Alcohol (Ethanol) (11/22/16 22:38) Salicylates (Aspirin) (11/22/16 22:38) Tylenol (Acetaminophen) (11/22/16 22:38) Lorazepam Inj (Ativan Inj) (11/22/16 22:45) Lorazepam Inj (Ativan Inj) (11/22/16 22:45) Lorazepam Inj (Ativan Inj) (11/22/16 23:00) Lorazepam Inj (Ativan Inj) (11/22/16 23:00) Lorazepam Inj (Ativan Inj) (11/22/16 23:00) Lorazepam Inj (Ativan Inj) (11/22/16 23:15) Sodium Chlor 0.9% 1000 Ml Inj (Ns 1000 M (11/22/16 23:15) Sodium Chlor 0.9% 1000 Ml Inj (Ns 1000 M (11/22/16 23:15) Ckmb (Isoenzyme) Profile (11/22/16 23:40) Troponin I (11/22/16 23:40) CKMB (11/22/16 22:44) CKMB% (11/22/16 22:44) Diphenhydramine Inj (Benadryl Inj) (11/23/16 00:00) Osmolality,Serum (11/23/16 00:12) Ua Includes Microscopic (11/23/16 00:12) Drug Screen, Random Urine (11/23/16 00:14) Ct Brain W/O Iv Contrast(Rout) (11/23/16 ) Admit Order (Ed Use Only) (11/23/16 ) Labs Laboratory Tests Test 11/22/16 11/23/16 22:44 00:10 White Blood Count 22.0 TH/MM3 Red Blood Count 4.78 MIL/MM3 Hemoglobin 14.4 GM/DL Hematocrit 41.7 % Mean Corpuscular Volume 87.3 FL Mean Corpuscular Hemoglobin 30.2 PG Mean Corpuscular Hemoglobin 34.6 % Concent Red Cell Distribution Width 13.2 % Platelet Count 511 TH/MM3 Mean Platelet Volume 8.4 FL Neutrophils (%) (Auto) 84.3 % Lymphocytes (%) (Auto) 8.4 % Monocytes (%) (Auto) 6.7 % Eosinophils (%) (Auto) 0.1 % Basophils (%) (Auto) 0.5 % Neutrophils # (Auto) 18.5 TH/MM3 Lymphocytes # (Auto) 1.8 TH/MM3 Monocytes # (Auto) 1.5 TH/MM3 Eosinophils # (Auto) 0.0 TH/MM3 Basophils # (Auto) 0.1 TH/MM3 CBC Comment DIFF FINAL Differential Comment Prothrombin Time 12.0 SEC Prothromb Time International 1.1 RATIO Ratio Activated Partial 27.9 SEC Thromboplast Time Salicylates Level LESS THAN 1.7 MG/DL Sodium Level 124 MEQ/L Potassium Level 3.7 MEQ/L Chloride Level 92 MEQ/L Carbon Dioxide Level 15.6 MEQ/L Anion Gap 16 MEQ/L Blood Urea Nitrogen 14 MG/DL Creatinine 1.13 MG/DL Estimat Glomerular Filtration 70 ML/MIN Rate Random Glucose 98 MG/DL Serum Osmolality 265 MOSM/KG Calcium Level 8.2 MG/DL Total Bilirubin 0.7 MG/DL Aspartate Amino Transf 33 U/L (AST/SGOT) Alanine Aminotransferase 41 U/L (ALT/SGPT) Alkaline Phosphatase 65 U/L Total Creatine Kinase 415 U/L Creatine Kinase MB 8.3 NG/ML Creatine Kinase MB % 2.0 % Troponin I LESS THAN 0.02 NG/ML Total Protein 6.8 GM/DL Albumin 3.2 GM/DL Thyroid Stimulating Hormone 1.990 uIU/ML 3rd Gen Acetaminophen Level LESS THAN 2.0 MCG/ML Ethyl Alcohol Level LESS THAN 3 MG/DL Urine Color LIGHT-YELLOW Urine Turbidity CLEAR Urine pH 7.0 Urine Specific [place] 1.004 Urine Protein NEG mg/dL Urine Glucose (UA) NEG mg/dL Urine Ketones NEG mg/dL Urine Occult Blood NEG Urine Nitrite NEG Urine Bilirubin NEG Urine Urobilinogen LESS THAN 2.0 MG/DL Urine Leukocyte Esterase NEG Urine RBC LESS THAN 1 /hpf Urine Opiates Screen NEG Urine Barbiturates Screen NEG Urine Amphetamines Screen NEG Urine Benzodiazepines Screen NEG Urine Cocaine Screen NEG Urine Cannabinoids Screen NEG MDM Medical Decision Making Medical Screen Exam Complete: Yes Emergency Medical Condition: Yes Interpretation(s) EKG shows junctional rhythm with inverted P waves in lead 2 with short WA interval. No STT changes. Intervals otherwise WNL. This is new change since . Differential Diagnosis Altered mental status, drug overdose, agitated delirium, intracranial abnormality, acidosis, alkalosis, Narrative Course Patient roomed in the emergency department, altered mental status mildly tremulous. Inconsistent with seizure activity. He is able to talk and track me around the room but does not follow commands. He was given a total of 8 mg of Ativan IV as well as 50 of Benadryl IV, I paged Dr. Cabrera of the ICU service as the patient is hyponatremic and needs to be evaluated for ICU placement. Patient will need a CT of his head and I'm considering intubating the patient to have this procedure done. Dr. Cabrera arrives and while patient had no response to ativan, after benadryl given, patient had rodriguez placed with large UOP and now he is more relaxed. Intubation withheld at this point. Patient osmol gap is 7. Does have metabolic acidosis with AG. No suggestion of methanol, ethalyne glycol or isopropyl injestion in history. 2L of fluidgiven Patient seen and examined by Dr. Cabrera who gage admit. Patient taken to CT scanner, mental status is improving, now talking, still very confused. CT head negative. Last [address] 11/23/16 0000 Signed Impressions: Service Date/Time: Wednesday, November 23, 2016 02:35 - CONCLUSION: 1. No acute intracranial abnormalities. Mucosal thickening in the paranasal sinuses. Bobby Edmond MD Critical Care Narrative Critical Care: The total critical care time was 30 minutes. Time to perform other separately billable procedures was not included in the critical care time. Diagnosis Primary Impression: Altered mental status Qualified Code: R40.2423 - Carroll coma scale total score 9-12, at hospital admission Additional Impressions: Ingested substance, unknown drug Dehydration Junctional rhythm Hyponatremia Metabolic acidosis Admitting Information Admitting Physician Requests: Admit Condition: Stable Bran Abdalla MD Nov 23, 2016 00:17
[2016-11-23 00:27] LABS: BLOOD, URINE NEG (NEG); GLUCOSE,URINE NEG (NEG); KETONE, URINE NEG (NEG); NITRITE,URINE NEG (NEG); URINE COLOR LIGHT-YELLOW (YELLW/STRAW)
[2016-11-23 00:35] LABS: AMPHETAMINE, URINE NEG (NEG); BARBITURATES, URINE NEG (NEG); COCAINE, URINE NEG (NEG)
[2016-11-23] MEDS ORDERED: SODIUM CHLORIDE 0.9% FLUSH 5 ML FLUSH IV FLUSH PRN (01:00)
[2016-11-23] MEDS ORDERED: CHLORHEXIDINE GLUCONATE 2 % 1 PACK (2 CLOTHS) TOP PRN (01:00)
[2016-11-23] MEDS ORDERED: METOCLOPRAMIDE HCL 10 MG/2 ML VIAL IV PRN (01:00)
[2016-11-23] MEDS ORDERED: ONDANSETRON HCL 4 MG/2 ML VIAL IV PRN (01:00)
[2016-11-23] MEDS ORDERED: MISCELLANEOUS NURSING INFORMATION XX SCH (01:00)
[2016-11-23] MEDS ORDERED: RESP: ALBUTEROL 2.5 MG/IPRATROPIUM 0.5 MG NEB (PRN) INH (01:00)
[2016-11-23] MEDS ORDERED: ACETAMINOPHEN 325 MG TAB PO PRN (01:00)
[2016-11-23] MEDS: SODIUM CHLOR 0.9% 1000 ML INJ 1,000 ML IV SCH ×3 (01:47→11:44)
[2016-11-23] MEDS: LORazepam 2 MG/ML VIAL IV PRN ×4 (02:22→08:30)
[2016-11-23] MEDS: HEPARIN SODIUM - SQ 10,000 UNITS/ML VIAL SQ SCH ×2 (02:22→08:31)
--- NOTE | 2016-11-23 02:51 | RADRPT ---
EXAM DATE/TIME: 11/23/2016 02:35 [facility] COMPARISON: No previous studies available for comparison. INDICATIONS : Altered mental status. RADIATION DOSE: 42.32 CTDIvol (mGy) MEDICAL HISTORY : Non-responsive. SURGICAL HISTORY : Non-responsive. ENCOUNTER: Initial ACUITY: 1 day PAIN SCALE: Non-responsive LOCATION: Bilateral cranial TECHNIQUE: Multiple contiguous axial images were obtained of the head. Using automated exposure control and adj ustment of the mA and/or kV according to patient size, radiation dose was kept as low as reasonably a chievable to obtain optimal diagnostic quality images. FINDINGS: CEREBRUM: The ventricles are normal for age. No evidence of midline shift, mass lesion, hemorrhage or acute in farction. No extra-axial fluid collections are seen. POSTERIOR FOSSA: The cerebellum and brainstem are intact. The 4th ventricle is midline. The cerebellopontine angle i s unremarkable. EXTRACRANIAL: The visualized portion of the orbits is intact. SKULL: The calvaria is intact. No evidence of skull fracture. CONCLUSION: 1. No acute intracranial abnormalities. Mucosal thickening in the paranasal sinuses. Bobby Edmond MD on November 23, 2016 at 2:47 Board Certified Radiologist. This report was verified electronically.
[2016-11-23] MEDS ORDERED: diphenhydrAMINE HCL 50 MG/ML VIAL IV PUSH ONE ×2 (03:15)
[2016-11-23] MEDS ORDERED: ZIPRASIDONE MESYLATE 20 MG VIAL IM ONE (03:15)
[2016-11-23] MEDS ORDERED: CHLORHEXIDINE GLUCONATE 2 % 1 PACK (2 CLOTHS) TOP SCH (04:00)
[2016-11-23 04:35] LABS: INDIRECT BILIRUBIN 0.5 MG/DL (0.0-0.8); TOTAL BILIRUBIN ADULT 0.7 MG/DL (0.2-1.0)
[2016-11-23 04:48] LABS: CKMB 19.6 NG/ML (0.5-3.6)
[2016-11-23] MEDS ORDERED: SODIUM CHLORIDE 0.9% FLUSH 5 ML FLUSH IV FLUSH SCH (09:00)
[2016-11-23] MEDS ORDERED: FAMOTIDINE 20 MG/2 ML VIAL IV PUSH SCH (09:00)
--- NOTE | 2016-11-23 10:09 | EKG ---
Date Performed: 11/23/2016 Time Performed: 00:02:37 PTAGE: 46 years EKG: ECTOPIC ATRIAL RHYTHM NONSPECIFIC ST & T-WAVE ABNORMALITY ABNORMAL RHYTHM ECG PREVIOUS TRACING : 11/12/2016 20.08 DOCTOR: Devon Melendez Interpretating Date/Time 11/23/2016 10:08:01
--- NOTE | 2016-11-23 10:12 | EKG ---
Date Performed: 11/22/2016 Time Performed: 23:05:11 PTAGE: 46 years EKG: ectopic atrial rhythm ST ELEVATION CONSISTENT WITH INJURY, PERICARDITIS, OR EARLY REPOLARIZ ATION NONSPECIFIC ST & T-WAVE ABNORMALITY ABNORMAL ECG PREVIOUS TRACING : 11/12/2016 20.08 DOCTOR: Devon Melendez Interpretating Date/Time 11/23/2016 10:10:42
--- NOTE | 2016-11-23 13:55 | PD.CONS ---
Provisional Diagnosis Admission Date Nov 23, 2016 at 00:34 Prescott I. Substance induced mood disorder, syntectic cannabis use disorder, amphetamines use, history of depression Prescott II. Deferred Prescott III. He denies Prescott IV. History of drug use disorder Prescott V. 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 According to EMS patient's called 911 because the patient admits smoking K2. Patient was recently admitted November 12 after another ingestion of unknown substance, he required to be intubated and subsequently was extubated fairly quickly and left the hospital within 23 hours. In the emergency department he was extremely agitated and tremulous he received 8 mg of Ativan and 50 mg of IV Benadryl to help to calm him down, he was admitted in ICU, consulted to psychiatry to assess suicidal intentions in his recent overdoses. Patient was seen and evaluated in the ICU, he was found calm, cooperative, a little bit sedated, he was restrained in 4 point, I spoke with the nurse in charge with decided to loosening him since patient seemed to be coherent, relevant, logical. On psychiatric evaluation the patient states that he doesn't even remember the reason he is here, last thing that he remembers is laying on the couch in his house feeling stomach sick after using some K2 and amphetamine like drugs. Patient says that he has been sober for many months, but in the last weeks he has been using again K2 and some amphetamine like drugs that he gets on the Internet. Patient states that he uses the drugs to increase his energy and his physical strength "because I work out very hard in the gym". But, he also states that drugs help him to be more social and more active. He denies overdosing with drugs with suicidal intentions, patient says that he has a very happy life, 2 kids that he loves, one is 3 years in another 6 years old, and his . He enjoyed his job and helping people. At this moment he denies depression, denies anxiety, denies anhedonia, denies hopelessness, denies helplessness, denies suicidal and homicidal ideation. He says that he has been in [facility] patient for many years and he is prescribed with Seroquel 400 mg at bedtime to help him with sleep and with mood, he has been in this same dose, stable, for many years now, and he says that he takes it religiously. Patient is oriented 3, no attention deficit, no gross cognitive impairment, no fluctuation of consciousness observed at this moment. His Sujatha Ignacio, who was interviewing separately, describes the patient as a very loyal, hard working, love by his friend and family, man. She does not saying that he overdoses with suicidal intention, but she says that he likes to use this "substances"to feel better and to increase energy to work out. She doesn't have any safety concern at this moment. She says that she has the tools and the power to help the patient to stop using this drug, especially because she has involved his family in the situation at this moment. She is okay with discharging the patient, she will make sure to continue his psychiatric care as an outpatient in [facility]. Review of Systems Constitutional: DENIES: Diaphoretic episodes, Fatigue, Fever, Weight gain, Weight loss, Chills, Dizziness, Change in appetite, Night Sweats Endocrine: DENIES: Heat/cold intolerance, Polydipsia, Polyuria, Polyphagia Eyes: DENIES: Blurred vision, Diplopia, Eye inflammation, Eye pain, Vision loss , Photosensitivity, Double Vision Ears, nose, mouth, throat: DENIES: Tinnitus, Hearing loss, Vertigo, Nasal discharge, Oral lesions, Throat pain, Hoarseness, Ear Pain, Running Nose, Epistaxis, Sinus Pain, Toothache, Odynophagia Respiratory: DENIES: Apneas, Cough, Snoring, Wheezing, Hemoptysis, Sputum production, Shortness of breath Cardiovascular: DENIES: Chest pain, Palpitations, Syncope, Dyspnea on Exertion , PND, Lower Extremity Edema, Orthopnea, Claudication Gastrointestinal: DENIES: Abdominal pain, Black stools, Bloody stools, Constipation, Diarrhea, Nausea, Vomiting, Difficulty Swallowing, Anorexia Musculoskeletal: DENIES: Joint pain, Muscle aches, Stiffness, Joint Swelling, Back pain, Neck pain Integumentary: DENIES: Abnormal pigmentation, Nail changes, Pruritus, Rash Hematologic/lymphatic: DENIES: Bruising, Lymphadenopathy Immunologic/allergic: DENIES: Eczema, Urticaria Neurologic: DENIES: Abnormal gait, Headache, Localized weakness, Paresthesias, Seizures, Speech Problems, Tremor, Poor Balance Past Family Social History Coded Allergies: No Known Allergies (Verified , 11/22/16) Reported Medications Quetiapine (Seroquel)400 Mg Eym882 Mg PO HS #30 TAB Ref 0 11/12/16 Family History He denies Social History Patient was born and raised in [place], he lives with his and 2 kids in [place], 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, his highest level of education is 2 years college Physical Exam Vital Signs Vital Signs Date Time Temp Pulse Resp B/P Pulse Ox O2 Delivery O2 Flow Rate FiO2 11/23/16 12:00 98.6 69 16 145/84 99 11/23/16 03:00 Nasal Cannula 2 Mental Status Examination Appearance man, age appearing, athletic complexity, good hygiene, calm and cooperative Speech: Unremarkable Orientation: x3 Memory: Unremarkable Thought Process: Organized Thought Content: Unremarkable Hallucination Type: None Suicidal Ideation: No Homicidal Ideation: No Previous Homicide Attempts: No Insight: Good Affect: Good Mood: Appropriate Motor Activity: Normal gait Assessment & Plan Problem List: (1) Substance induced mood disorder Assessment & Plan: The patient is a 46-year-old man, domiciled with his in [place], he has 2 kids, 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 According to EMS patient's called 911 because the patient admits smoking K2. On psychiatric evaluation today the patient does not present any subjective or objective symptomatology of depression, anxiety, chiqui or psychosis. He denies suicidal or homicidal ideation, he denies visual and auditory hallucinations. Recent episode of aggressive behavior and agitation in the ER was most probably secondary to acute drug intoxication. At this moment the patient does not benefit or even meet criteria for psychiatric admission. He would really benefit of a rehabilitation program for drugs. Extensive support, motivation psycho education provided to the patient and his . Patient can continue psychiatric care as an outpatient at [facility], continue Seroquel 400 mg at bedtime. Consult appreciated. ICD Code: F19.94 Assessment & Plan Estimated LOS: days Alphonso Mccollum MD Nov 23, 2016 13:54
[2016-11-23 14:20] LABS: CKMB 17.8 NG/ML (0.5-3.6)
== END 2016-11-23 12:45 | disposition left against medical advice (07) | DRG 894 ==
LOC: NEPA 22:22 → NEDA 11-23 00:34 → HIMW 11-23 02:50
PROVIDERS: ADMIT Internal Medicine Critical Care Medicine; ATTEND Internal Medicine Critical Care Medicine
PROC: 0T9B70Z Drainage of Bladder with Drainage Device, Via Natural or Artificial Opening (ICD-10-PCS; principal; 2016-11-22)
DX: F19.94 Other psychoactive substance use, unspecified with psychoactive substance-induced mood disorder (principal); E87.2 Acidosis; E87.1 Hypo-osmolality and hyponatremia; E86.0 Dehydration; F41.9 Anxiety disorder, unspecified; Z72.0 Tobacco use; F32.9 Major depressive disorder, single episode, unspecified; F19.10 Other psychoactive substance abuse, uncomplicated; F12.90 Cannabis use, unspecified, uncomplicated
CPT/HCPCS: 51702; 70450; 80053; 80076; 80307; 80320; 80329; 81001; 82140; 82550; 82552; 83930; 84443; 84484; 85025; 85610; 85730; 87641; 93005; 96361; 96374; 96375; 96376; G0480; J1200; J1644; J2060; J2405; J3486; J7030

== ENCOUNTER 2016-12-16 23:26 | Emergency (ER) | payer SELFPAY ==
[~2016-12-16] VITALS: Ht 185.4 cm; Wt 90.0 kg
[2016-12-16] MEDS ORDERED: LORazepam 2 MG/ML VIAL ONE (23:32)
[2016-12-16 23:34] VITALS: BP 135/94; PULSE 97; RESP 16; TEMP 98.8; O2SAT 95
[2016-12-16] MEDS ORDERED: MELA5TAB15 PO (23:41)
[2016-12-16] MEDS ORDERED: LORazepam 2 MG/ML VIAL IV PUSH ONE (23:45)
[2016-12-16] MEDS ORDERED: SODIUM CHLOR 0.9% 1000 ML INJ 1,000 ML IV ONE (23:45)
--- NOTE | 2016-12-16 23:46 | PD ---
HPI Chief Complaint: OD/ Ingestion Time Seen by Provider: 23:32 Travel History International Travel<30 days: No Contact w/Intl Traveler<30days: No Traveled to known affect area: No History of Present Illness HPI 46-year-old male was brought to the ED by a friend. Patient extremely combative and unable to provide information. Patient has been to the emergency multiple times in the past with the same problem of overdose on drugs. 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 PFSH Past Medical History Anxiety: Yes Depression: No Cancer: No Cardiovascular Problems: No Chemotherapy: No Diminished Hearing: No Endocrine: No Genitourinary: No Immune Disorder: No Musculoskeletal: No Neurologic: No Psychiatric: Yes Respiratory: No Radiation Therapy: No Social History Alcohol Use: Yes Tobacco Use: Yes Substance Use: Yes (MARIJUANA) Allergies-Medications (Allergen,Severity, Reaction): Coded Allergies: No Known Allergies (Verified , 12/16/16) Reported Meds & Prescriptions Reported Meds & Active Scripts Active Reported Melatonin 5 Mg Tab 5 Mg PO HS Seroquel (Quetiapine Fumarate) 400 Mg Tab 800 Mg PO HS Review of Systems General / Constitutional: No: Fever Eyes: No: Visual changes HENT: No: Headaches Cardiovascular: No: Chest Pain or Discomfort Respiratory: No: Shortness of Breath Gastrointestinal: No: Abdominal Pain Genitourinary: No: Dysuria Musculoskeletal: No: Pain Skin: No Rash Neurologic: No: Weakness Psychiatric: No: Depression Endocrine: No: Polydipsia Hematologic/Lymphatic: No: Easy Bruising Physical Exam Narrative GENERAL: Well-nourished, well-developed patient. SKIN: Warm and dry. HEAD: Normocephalic. EYES: No scleral icterus. No injection or drainage. NECK: Supple, trachea midline. No JVD or lymphadenopathy. CARDIOVASCULAR: Regular rate and rhythm without murmurs, gallops, or rubs. RESPIRATORY: Breath sounds equal bilaterally. No accessory muscle use. GASTROINTESTINAL: Abdomen soft, non-tender, nondistended. MUSCULOSKELETAL: No cyanosis, or edema. BACK: Nontender without obvious deformity. No CVA tenderness. Neurologic exam: Patient extremely combative unable to provide information. Patient moves all extremity well. No obvious focal neurological deficit. Data Data Last Documented VS Vital Signs Date Time Temp Pulse Resp B/P Pulse Ox O2 Delivery O2 Flow Rate FiO2 12/16/16 23:54 88 16 157/74 96 Room Air 12/16/16 23:34 98.8 Orders Lorazepam Inj (Ativan Inj) (12/16/16 23:32) Electrocardiogram (12/16/16 23:36) Complete Blood Count With Diff (12/16/16 23:36) Comprehensive Metabolic Panel (12/16/16 23:36) Creatine Kinase (Cpk) (12/16/16 23:36) Troponin I (12/16/16 23:36) Prothrombin Time / Inr (Pt) (12/16/16 23:36) Act Partial Throm Time (Ptt) (12/16/16 23:36) Thyroid Stimulating Hormone (12/16/16 23:36) Chest, Single Ap (12/16/16 23:36) Iv Access Insert/Monitor (12/16/16 23:36) Ecg Monitoring (12/16/16 23:36) Oximetry (12/16/16 23:36) Sodium Chlor 0.9% 1000 Ml Inj (Ns 1000 M (12/16/16 23:45) Lorazepam Inj (Ativan Inj) (12/16/16 23:45) CKMB (12/16/16 23:20) CKMB% (12/16/16 23:20) Labs Laboratory Tests Test 12/16/16 23:20 White Blood Count 10.5 TH/MM3 Red Blood Count 4.35 MIL/MM3 Hemoglobin 13.0 GM/DL Hematocrit 38.6 % Mean Corpuscular Volume 88.6 FL Mean Corpuscular Hemoglobin 29.9 PG Mean Corpuscular Hemoglobin 33.8 % Concent Red Cell Distribution Width 13.9 % Platelet Count 361 TH/MM3 Mean Platelet Volume 8.4 FL Neutrophils (%) (Auto) 78.6 % Lymphocytes (%) (Auto) 12.9 % Monocytes (%) (Auto) 7.2 % Eosinophils (%) (Auto) 0.4 % Basophils (%) (Auto) 0.9 % Neutrophils # (Auto) 8.3 TH/MM3 Lymphocytes # (Auto) 1.4 TH/MM3 Monocytes # (Auto) 0.8 TH/MM3 Eosinophils # (Auto) 0.0 TH/MM3 Basophils # (Auto) 0.1 TH/MM3 CBC Comment DIFF FINAL Differential Comment Prothrombin Time 10.9 SEC Prothromb Time International 1.0 RATIO Ratio Activated Partial 23.7 SEC Thromboplast Time Sodium Level 138 MEQ/L Potassium Level 4.3 MEQ/L Chloride Level 102 MEQ/L Carbon Dioxide Level 27.5 MEQ/L Anion Gap 9 MEQ/L Blood Urea Nitrogen 22 MG/DL Creatinine 1.48 MG/DL Estimat Glomerular Filtration 51 ML/MIN Rate Random Glucose 167 MG/DL Calcium Level 8.7 MG/DL Total Bilirubin 0.3 MG/DL Aspartate Amino Transf 68 U/L (AST/SGOT) Alanine Aminotransferase 68 U/L (ALT/SGPT) Alkaline Phosphatase 70 U/L Total Creatine Kinase 951 U/L Creatine Kinase MB 9.9 NG/ML Creatine Kinase MB % 1.0 % Troponin I LESS THAN 0.02 NG/ML Total Protein 7.2 GM/DL Albumin 3.5 GM/DL Thyroid Stimulating Hormone 0.539 uIU/ML 3rd Gen [facility] Medical Decision Making Medical Screen Exam Complete: Yes Emergency Medical Condition: Yes Interpretation(s) Last Impressions Chest X-Ray 12/16/16 2826 Signed Impressions: Service Date/Time: Friday, December 16, 2016 23:47 - CONCLUSION: No acute disease. Rah Padilla Jr., MD 1 14 AM CBC within normal limit. BUN 22. Creatinine 1.48. Glucose 167. AST 68. Total CK 951. Normal MB fraction. Troponin normal. Differential Diagnosis Differential diagnosis including substance-induced mood disorder, psychosis, schizophrenia. Narrative Course 46-year-old male was brought to the ED by a friend extremely combative. History of substance abuse in the past. IV was started on the left arm. Ativan 4 mg IV given. Patient calmed down. Normal saline solution 1 25 cc an hour. Normal saline solution 1 L IV bolus. Diagnosis Primary Impression: Substance induced mood disorder Additional Impression: Rhabdomyolysis Qualified Code: M62.82 - Non-traumatic rhabdomyolysis Additional Instructions: Advised patient to avoid drug abuse. Follow-up with local physician. Follow- up with [facility]. Return as needed. Encourage by mouth fluid. Med/Other Pt SpecificInfo: No Meds Exist/No RX given Disposition: 01 DISCHARGE HOME Condition: Stable Marvin Woodard MD Dec 16, 2016 23:46
[2016-12-16 23:54] VITALS: BP 157/74; PULSE 88; RESP 16; O2SAT 96
[2016-12-17 00:04] LABS: AUTOMATED NEUTROPHIL # 8.3 TH/MM3 (1.8-7.7); BASOPHIL # 0.1 TH/MM3 (0-0.2); BASOPHIL % 0.9 % (0.0-2.0); EOSINOPHIL % 0.4 % (0.0-4.0); HEMATOCRIT 38.6 % (39.0-51.0); HEMO FLAGS DIFF FINAL; LYMPH % 12.9 % (9.0-44.0); LYMPHOCYTE # 1.4 TH/MM3 (1.0-4.8); MEAN CELL VOLUME 88.6 FL (80.0-100.0); MEAN CORPUSCULAR HEMOGLOBIN 29.9 PG (27.0-34.0); MEAN CORPUSCULAR HGB CONC 33.8 % (32.0-36.0); MONO % 7.2 % (0.0-8.0); NEUT % 78.6 % (16.0-70.0); PLATELET COUNT 361 TH/MM3 (150-450); RED BLOOD COUNT 4.35 MIL/MM3 (4.50-5.90); RED CELL DISTRIBUTION WIDTH 13.9 % (11.6-17.2); WHITE BLOOD COUNT 10.5 TH/MM3 (4.0-11.0)
--- NOTE | 2016-12-17 00:09 | RADRPT ---
EXAM DATE/TIME: 12/16/2016 23:47 [facility] COMPARISON: CHEST SINGLE AP, November 12, 2016, 19:59. INDICATIONS : Shortness of breath, altered mental status. MEDICAL HISTORY : None. SURGICAL HISTORY : None. ENCOUNTER: Initial ACUITY: 1 day PAIN SCORE: Non-responsive. LOCATION: Bilateral chest FINDINGS: A single view of the chest demonstrates the lungs to be symmetrically aerated without evidence of mas s, infiltrate or effusion. The cardiomediastinal contours are unremarkable. Osseous structures are intact. CONCLUSION: No acute disease. Rah Padilla Jr., MD on December 17, 2016 at 0:07 Board Certified Radiologist. This report was verified electronically.
[2016-12-17 00:23] LABS: APTT (PATIENT) 23.7 SEC (24.3-30.1); PROTHROMBIN TIME - PATIENT 10.9 SEC (9.8-11.6)
[2016-12-17 00:31] LABS: ANION GAP 9 MEQ/L (5-15); AST (GOT) 68 U/L (15-37); BICARBONATE 27.5 MEQ/L (21.0-32.0); BLOOD UREA NITROGEN 22 MG/DL (7-18); CHLORIDE 102 MEQ/L (98-107); GLOMERULAR FILTRATION RATE 51 ML/MIN (>89); POTASSIUM 4.3 MEQ/L (3.5-5.1); SODIUM (NA) 138 MEQ/L (136-145)
[2016-12-17 00:42] LABS: ALKALINE PHOSPHATASE 70 U/L (45-117); ALT (GPT) 68 U/L (12-78); CREATINE KINASE 951 U/L (39-308); TOTAL BILIRUBIN ADULT 0.3 MG/DL (0.2-1.0)
[2016-12-17 00:55] LABS: CKMB 9.9 NG/ML (0.5-3.6)
[2016-12-17 01:14] VITALS: BP 113/51; PULSE 70; RESP 16; O2SAT 96
[2016-12-17 03:14] VITALS: BP 115/57; PULSE 67; RESP 14; O2SAT 99
[2016-12-17 07:00] VITALS: BP 112/62; PULSE 62; RESP 12; O2SAT 95
[2016-12-17 09:00] VITALS: BP 138/40; PULSE 70; RESP 14; O2SAT 97
--- NOTE | 2016-12-17 16:46 | EKG ---
Date Performed: 12/16/2016 Time Performed: 23:41:00 PTAGE: 46 years EKG: Sinus rhythm POSSIBLE LEFT ATRIAL ENLARGEMENT POSSIBLE LEFT VENTRICULAR HYPERTROPHY NONSPECIFIC T-WAVE ABNORMALIT Y Ectopic atrial rhythm no longer present compared to the prior tracing ABNORMAL ECG PREVIOUS TRACING : 11/23/2016 00.02 DOCTOR: Pardeep Feliz Interpretating Date/Time 12/17/2016 16:45:02
== END 2016-12-17 09:02 | disposition home or self-care (01) ==
LOC: NEPE 23:26
DX: F19.14 Other psychoactive substance abuse with psychoactive substance-induced mood disorder (principal); M62.82 Rhabdomyolysis; F12.10 Cannabis abuse, uncomplicated; Z72.0 Tobacco use; R94.31 Abnormal electrocardiogram [ECG] [EKG]
CPT/HCPCS: 71010; 80053; 82550; 82552; 84443; 84484; 85025; 85610; 85730; 93005; 96361; 96374; 99285; J2060; J7030

== ENCOUNTER 2017-01-13 21:54 | Emergency (ER) | payer SELFPAY ==
[~2017-01-13] VITALS: Ht 185.4 cm; Wt 98.0 kg
[~2017-01-13 21:54] MED LIST changes: +MELA5TAB15 PO
[2017-01-13 22:08] VITALS: BP 120/71; PULSE 98; RESP 18; TEMP 100.3; TEMP 98.6; O2SAT 98
[2017-01-13] MEDS ORDERED: SODIUM CHLOR 0.9% 1000 ML INJ 1,000 ML IV SCH (22:26)
[2017-01-13] MEDS ORDERED: SODIUM CHLORIDE 0.9% FLUSH 10 ML FLUSH IVF PRN (22:30)
[2017-01-13] MEDS ORDERED: SODIUM CHLOR 0.9% 1000 ML INJ 1,000 ML IV ONE (22:30)
--- NOTE | 2017-01-13 23:00 | RADRPT ---
EXAM DATE/TIME: 01/13/2017 22:43 [facility] COMPARISON: CT BRAIN W/O CONTRAST, November 23, 2016, 2:35. INDICATIONS : Trauma; hematoma on left side and forehead laceration. RADIATION DOSE: 56.35 CTDIvol (mGy) MEDICAL HISTORY : None SURGICAL HISTORY : None. ENCOUNTER: Initial ACUITY: 1 day PAIN SCALE: 6/10 LOCATION: cranial TECHNIQUE: Multiple contiguous axial images were obtained of the head. Using automated exposure control and adj ustment of the mA and/or kV according to patient size, radiation dose was kept as low as reasonably a chievable to obtain optimal diagnostic quality images. FINDINGS: CEREBRUM: The ventricles are normal for age. No evidence of midline shift, mass lesion, hemorrhage or acute in farction. No extra-axial fluid collections are seen. POSTERIOR FOSSA: The cerebellum and brainstem are intact. The 4th ventricle is midline. The cerebellopontine angle i s unremarkable. EXTRACRANIAL: The visualized portion of the orbits is intact. Mild left periorbital soft tissue swelling. No radiop aque foreign body. SKULL: The calvaria is intact. No evidence of skull fracture. CONCLUSION: 1. Mild left periorbital soft tissue swelling. Otherwise, unremarkable exam. Rah Padilla Jr., MD on January 13, 2017 at 22:57 Board Certified Radiologist. This report was verified electronically.
[2017-01-13 23:29] LABS: AUTOMATED NEUTROPHIL # 15.6 TH/MM3 (1.8-7.7); BASOPHIL % 0.3 % (0.0-2.0); EOSINOPHIL % 0.1 % (0.0-4.0); HEMATOCRIT 40.7 % (39.0-51.0); HEMO FLAGS DIFF FINAL; LYMPH % 7.6 % (9.0-44.0); LYMPHOCYTE # 1.4 TH/MM3 (1.0-4.8); MEAN CELL VOLUME 86.8 FL (80.0-100.0); MEAN CORPUSCULAR HEMOGLOBIN 28.8 PG (27.0-34.0); MEAN CORPUSCULAR HGB CONC 33.2 % (32.0-36.0); MONO % 5.4 % (0.0-8.0); NEUT % 86.6 % (16.0-70.0); PLATELET COUNT 275 TH/MM3 (150-450); RED BLOOD COUNT 4.69 MIL/MM3 (4.50-5.90); RED CELL DISTRIBUTION WIDTH 14.1 % (11.6-17.2)
[2017-01-13 23:36] LABS: AMPHETAMINE, URINE POS (NEG); BARBITURATES, URINE NEG (NEG); COCAINE, URINE POS (NEG)
[2017-01-14 00:03] LABS: CREATINE KINASE 1270 U/L (39-308)
[2017-01-14 00:22] LABS: CKMB 13.1 NG/ML (0.5-3.6)
[2017-01-14 00:23] LABS: ANION GAP 9 MEQ/L (5-15); BICARBONATE 26.7 MEQ/L (21.0-32.0); BLOOD UREA NITROGEN 22 MG/DL (7-18); CHLORIDE 102 MEQ/L (98-107); GLOMERULAR FILTRATION RATE 42 ML/MIN (>89); POTASSIUM 4.7 MEQ/L (3.5-5.1); SODIUM (NA) 138 MEQ/L (136-145)
[2017-01-14] MEDS ORDERED: SODIUM CHLOR 0.9% 1000 ML INJ 1,000 ML IV ONE ×2 (00:30)
[2017-01-14] MEDS ORDERED: LORazepam 2 MG/ML VIAL IV PUSH ONE (00:45)
--- NOTE | 2017-01-14 00:51 | PD ---
HPI Chief Complaint: Alcohol/Drug Intoxication Time Seen by Provider: 22:26 Travel History International Travel<30 days: No Contact w/Intl Traveler<30days: No Traveled to known affect area: No History of Present Illness HPI 46-year-old male arrives by EMS. He was smoking a synthetic marijuana with friends. Evidently he loss consciousness and fell to the ground striking his left head. In the ER he denies any specific complaint other than regret for having abused drugs again. No seizure activity observed. Onset sudden. Location generalized and left scalp. He notes earlier this morning he stood up and struck his head on a cabinet door causing some bleeding. PFSH Past Medical History Anxiety: Yes Depression: No Cancer: No Cardiovascular Problems: No Chemotherapy: No Diminished Hearing: No Endocrine: No Genitourinary: No Immune Disorder: No Musculoskeletal: No Neurologic: No Psychiatric: Yes Respiratory: No Radiation Therapy: No Influenza Vaccination: No Past Surgical History Surgical History: No Previous Surgery Social History Alcohol Use: Yes Tobacco Use: No Substance Use: Yes (MARIJUANA) Allergies-Medications (Allergen,Severity, Reaction): Coded Allergies: No Known Allergies (Verified , 01/13/17) Reported Meds & Prescriptions Reported Meds & Active Scripts Active Reported Melatonin 5 Mg Tab 5 Mg PO HS Seroquel (Quetiapine Fumarate) 400 Mg Tab 400 Mg PO HS Review of Systems Except as stated in HPI: all other systems reviewed are Neg General / Constitutional: No: Fever, Chills Psychiatric: Positive: Substance Abuse Physical Exam Narrative GENERAL: 46-year-old male well-nourished well-developed SKIN: Focused skin assessment warm/dry. HEAD: Atraumatic. Normocephalic. There is a 1 cm x 5 mm laceration in the midline anterior scalp. EYES: Pupils equal and round. No scleral icterus. No injection or drainage. ENT: No nasal bleeding or discharge. Mucous membranes pink and moist. NECK: Trachea midline. No JVD. CARDIOVASCULAR: Regular rate and rhythm. No murmur appreciated. RESPIRATORY: No accessory muscle use. Clear to auscultation. Breath sounds equal bilaterally. GASTROINTESTINAL: Abdomen soft, non-tender, nondistended. Hepatic and splenic margins not palpable. MUSCULOSKELETAL: No obvious deformities. No clubbing. No cyanosis. No edema. NEUROLOGICAL: Awake and alert. No obvious cranial nerve deficits. Motor grossly within normal limits. Normal speech. PSYCHIATRIC: Appropriate mood and affect; insight and judgment normal. Data Data Last Documented VS Vital Signs Date Time Temp Pulse Resp B/P Pulse Ox O2 Delivery O2 Flow Rate FiO2 01/13/17 22:08 100.3 98 18 120/71 98 Vital signs reviewed Orders Basic Metabolic Panel (Bmp) (01/13/17 22:26) Complete Blood Count With Diff (01/13/17 22:26) Creatine Kinase (Cpk) (01/13/17 22:26) Ct Brain W/O Iv Contrast(Rout) (01/13/17 22:26) Blood Glucose (01/13/17 22:26) Ecg Monitoring (01/13/17:) Iv Access Insert/Monitor (01/13/17:) Oximetry (01/13/17:) Sodium Chloride 0.9% Flush (Ns Flush) (01/13/17 22:30) Sodium Chlor 0.9% 1000 Ml Inj (Ns 1000 M (01/13/17 22:26) Drug Screen, Random Urine (01/13/17 22:26) Alcohol (Ethanol) (01/13/17 22:26) Sodium Chlor 0.9% 1000 Ml Inj (Ns 1000 M (01/13/17 22:30) CKMB (01/13/17 22:50) CKMB% (01/13/17 22:50) Sodium Chlor 0.9% 1000 Ml Inj (Ns 1000 M (01/14/17 00:30) Sodium Chlor 0.9% 1000 Ml Inj (Ns 1000 M (01/14/17 00:30) Lorazepam Inj (Ativan Inj) (01/14/17 00:45) Labs Laboratory Tests Test 01/13/17 01/13/17 22:50 23:10 White Blood Count 18.0 TH/MM3 Red Blood Count 4.69 MIL/MM3 Hemoglobin 13.5 GM/DL Hematocrit 40.7 % Mean Corpuscular Volume 86.8 FL Mean Corpuscular Hemoglobin 28.8 PG Mean Corpuscular Hemoglobin 33.2 % Concent Red Cell Distribution Width 14.1 % Platelet Count 275 TH/MM3 Mean Platelet Volume 8.6 FL Neutrophils (%) (Auto) 86.6 % Lymphocytes (%) (Auto) 7.6 % Monocytes (%) (Auto) 5.4 % Eosinophils (%) (Auto) 0.1 % Basophils (%) (Auto) 0.3 % Neutrophils # (Auto) 15.6 TH/MM3 Lymphocytes # (Auto) 1.4 TH/MM3 Monocytes # (Auto) 1.0 TH/MM3 Eosinophils # (Auto) 0.0 TH/MM3 Basophils # (Auto) 0.0 TH/MM3 CBC Comment DIFF FINAL Differential Comment Sodium Level 138 MEQ/L Potassium Level 4.7 MEQ/L Chloride Level 102 MEQ/L Carbon Dioxide Level 26.7 MEQ/L Anion Gap 9 MEQ/L Blood Urea Nitrogen 22 MG/DL Creatinine 1.75 MG/DL Estimat Glomerular Filtration 42 ML/MIN Rate Random Glucose 107 MG/DL Calcium Level 8.7 MG/DL Total Creatine Kinase 1270 U/L Creatine Kinase MB 13.1 NG/ML Creatine Kinase MB % 1.0 % Ethyl Alcohol Level LESS THAN 3 MG/DL Urine Opiates Screen NEG Urine Barbiturates Screen NEG Urine Amphetamines Screen POS Urine Benzodiazepines Screen NEG Urine Cocaine Screen POS Urine Cannabinoids Screen NEG MDM Medical Decision Making Medical Screen Exam Complete: Yes Emergency Medical Condition: Yes Medical Record Reviewed: Yes Differential Diagnosis Rhabdomyolysis, electrolyte imbalance, subdural hemorrhage, scalp contusion, polysubstance abuse Narrative Course CBC & BMP Diagram 01/13/17 22:50 Total creatinine kinase 1270 Urine drug screen + for cocaine and amphetamines EtOH < 3 Last [address] 01/13/17 2226 Signed Impressions: Service Date/Time: Friday, January 13, 2017 22:43 - CONCLUSION: 1. Mild left periorbital soft tissue swelling. Otherwise, unremarkable exam. Rah Padilla Jr., MD Patient received multiple liters of IV fluids. He has iterated multiple times that he intends to stop abusing drugs. There is mild elevation in creatinine kinase with renal indices about stable for him. Diagnosis Primary Impression: LOC (loss of consciousness) Additional Impression: Substance abuse Referrals: Primary Care Physician Additional Instructions: You have a choice when it comes to health care, and we are glad that you chose [facility]. Hopefully, we have met your expectations on today's visit. You are welcome to return to [facility] at any time, as we are committed to meeting the health care needs of our community. Med/Other Pt SpecificInfo: No Change to Meds Disposition: DISCHARGE HOME Condition: Stable Saleem Walsh MD Jan 14, 2017 00:51
[2017-01-14 02:20] VITALS: BP 114/68; TEMP 98.6
== END 2017-01-14 02:25 | disposition home or self-care (01) ==
LOC: NEPE 21:54
DX: R55 Syncope and collapse (principal); F15.10 Other stimulant abuse, uncomplicated; F14.10 Cocaine abuse, uncomplicated; S01.81XA Laceration without foreign body of other part of head, initial encounter; W19.XXXA Unspecified fall, initial encounter; Z79.899 Other long term (current) drug therapy
CPT/HCPCS: 70450; 80048; 80307; 82550; 82552; 85025; 96361; 96374; 99284; J2060; J7030

== ENCOUNTER 2017-04-23 12:18 | Emergency (ER) | payer SELFPAY ==
[~2017-04-23] VITALS: Ht 167.6 cm; Wt 87.0 kg
--- NOTE | 2017-04-23 13:02 | PD ---
HPI Chief Complaint: ingestion Time Seen by Provider: 13:01 Travel History International Travel<30 days: No Contact w/Intl Traveler<30days: No History of Present Illness HPI 46 YO M presents to the ED via EMS for evaluation of AMS. Per EMS the patient's called EMS for a well check on the patient this AM, after he appeared somnolent. While law enforcement was speaking with the patient his "eyes were rolling back." Vitals stable en route. Patient is somnolent on presentation, rouses briefly to voice and light touch. He is unable to provide any meaningful history. Per record review the patient has been seen in the ED multiple times for polysubstance abuse. PFSH Past Medical History Anxiety: Yes Depression: No Cancer: No Cardiovascular Problems: No Chemotherapy: No Diminished Hearing: No Endocrine: No Genitourinary: No Immune Disorder: No Musculoskeletal: No Neurologic: No Psychiatric: Yes Respiratory: No Radiation Therapy: No Social History Alcohol Use: Yes Tobacco Use: No Substance Use: Yes (MARIJUANA) Allergies-Medications (Allergen,Severity, Reaction): Coded Allergies: No Known Allergies (Verified , 01/13/17) Reported Meds & Prescriptions Reported Meds & Active Scripts Active Reported Melatonin 5 Mg Tab 5 Mg PO HS Seroquel (Quetiapine Fumarate) 400 Mg Tab 400 Mg PO HS Review of Systems Except as stated in HPI: all other systems reviewed are Neg Physical Exam Narrative GENERAL: Well-nourished, well-developed athletic white male in NAD. SKIN: Focused skin assessment warm/dry. Small abrasion dorsal surface, left foot. HEAD: Normocephalic. Atraumatic. EYES: No scleral icterus. No injection or drainage. Pupils 4-5 cm bilaterally, EOM intact. NECK: Supple, trachea midline. No JVD or lymphadenopathy. CARDIOVASCULAR: Regular rate and rhythm without murmurs, gallops, or rubs. 2+ DP and radial pulses. RESPIRATORY: Breath sounds clear and equal bilaterally. No accessory muscle use. GASTROINTESTINAL: Abdomen soft, non-tender, nondistended. Hypoactive bowel sounds. MUSCULOSKELETAL: No cyanosis, or edema. NEUROLOGICAL: Awake and alert. Cranial nerves II through XII intact. Motor and sensory grossly within normal limits. 5/ 5 muscle strength in all muscle groups. Patient intermittently follows commands, exam limited. BACK: Nontender without obvious deformity. No CVA tenderness. Data Data Last Documented VS Vital Signs Date Time Temp Pulse Resp B/P Pulse Ox O2 Delivery O2 Flow Rate FiO2 04/23/17 13:15 97 Room Air 04/23/17 13:03 72 18 116/68 Orders Electrocardiogram (04/23/17 13:20) Ammonia (04/23/17 13:20) Complete Blood Count With Diff (04/23/17 13:20) Comprehensive Metabolic Panel (04/23/17 13:20) Creatine Kinase (Cpk) (04/23/17 13:20) Prothrombin Time / Inr (Pt) (04/23/17 13:20) Act Partial Throm Time (Ptt) (04/23/17 13:20) Troponin I (04/23/17 13:20) Thyroid Stimulating Hormone (04/23/17 13:20) Urinalysis - C+S If Indicated (04/23/17 13:20) Chest, Single Ap (04/23/17 13:20) Ct Brain W/O Iv Contrast(Rout) (04/23/17 13:20) Blood Glucose (04/23/17 13:20) Ecg Monitoring (04/23/17 13:20) Iv Access Insert/Monitor (04/23/17 13:20) Oximetry (04/23/17 13:20) Sodium Chloride 0.9% Flush (Ns Flush) (04/23/17 13:30) Sodium Chlor 0.9% 1000 Ml Inj (Ns 1000 M (04/23/17 13:20) Drug Screen, Random Urine (04/23/17 13:20) Alcohol (Ethanol) (04/23/17 13:20) Tylenol (Acetaminophen) (04/23/17 13:20) Salicylates (Aspirin) (04/23/17 13:20) Cath For Specimen (04/23/17 15:40) Call Poison Control (04/23/17 15:42) ^ Straight Catheter (04/23/17 16:32) Sodium Chlor 0.9% 1000 Ml Inj (Ns 1000 M (04/23/17 16:45) Labs Laboratory Tests Test 04/23/17 04/23/17 13:30 16:59 White Blood Count 8.9 TH/MM3 Red Blood Count 5.30 MIL/MM3 Hemoglobin 15.2 GM/DL Hematocrit 45.6 % Mean Corpuscular Volume 86.0 FL Mean Corpuscular Hemoglobin 28.6 PG Mean Corpuscular Hemoglobin 33.3 % Concent Red Cell Distribution Width 15.7 % Platelet Count 305 TH/MM3 Mean Platelet Volume 8.4 FL Neutrophils (%) (Auto) 69.4 % Lymphocytes (%) (Auto) 16.9 % Monocytes (%) (Auto) 10.3 % Eosinophils (%) (Auto) 2.3 % Basophils (%) (Auto) 1.1 % Neutrophils # (Auto) 6.2 TH/MM3 Lymphocytes # (Auto) 1.5 TH/MM3 Monocytes # (Auto) 0.9 TH/MM3 Eosinophils # (Auto) 0.2 TH/MM3 Basophils # (Auto) 0.1 TH/MM3 CBC Comment DIFF FINAL Differential Comment Prothrombin Time 11.2 SEC Prothromb Time International 1.0 RATIO Ratio Activated Partial 23.5 SEC Thromboplast Time Sodium Level 136 MEQ/L Potassium Level 4.4 MEQ/L Chloride Level 101 MEQ/L Carbon Dioxide Level 26.7 MEQ/L Anion Gap 8 MEQ/L Blood Urea Nitrogen 20 MG/DL Creatinine 1.90 MG/DL Estimat Glomerular Filtration 39 ML/MIN Rate Random Glucose 99 MG/DL Calcium Level 8.3 MG/DL Total Bilirubin 0.5 MG/DL Aspartate Amino Transf 40 U/L (AST/SGOT) Alanine Aminotransferase 54 U/L (ALT/SGPT) Alkaline Phosphatase 70 U/L Ammonia 28 MCMOL/L Total Creatine Kinase 293 U/L Troponin I LESS THAN 0.02 NG/ML Total Protein 7.2 GM/DL Albumin 3.7 GM/DL Thyroid Stimulating Hormone 1.350 uIU/ML 3rd Gen Salicylates Level LESS THAN 1.7 MG/DL Acetaminophen Level LESS THAN 2.0 MCG/ML Ethyl Alcohol Level LESS THAN 3 MG/DL Urine Color YELLOW Urine Turbidity CLEAR Urine pH 5.5 Urine Specific [place] 1.032 Urine Protein 30 mg/dL Urine Glucose (UA) NEG mg/dL Urine Ketones NEG mg/dL Urine Occult Blood NEG Urine Nitrite NEG Urine Bilirubin NEG Urine Urobilinogen 2.0 MG/DL Urine Leukocyte Esterase NEG Urine RBC LESS THAN 1 /hpf Urine WBC 4 /hpf Urine Squamous Epithelial 1 /hpf Cells Urine Hyaline Casts 92 /lpf Urine Granular Casts 25 /lpf Urine Mucus FEW /lpf Microscopic Urinalysis Comment CATH-CULT NOT IND Urine Opiates Screen NEG Urine Barbiturates Screen NEG Urine Amphetamines Screen NEG Urine Benzodiazepines Screen NEG Urine Cocaine Screen NEG Urine Cannabinoids Screen NEG MDM Medical Decision Making Medical Screen Exam Complete: Yes Emergency Medical Condition: Yes Differential Diagnosis acute intoxication versus medication reaction versus depression versus accidental overdose versus intentional overdose versus AMS versus Narrative Course 46 YO M presents to the ED via EMS for evaluation of AMS. Per EMS the patient's called EMS for a well check on the patient this AM, after he appeared somnolent. Vitals stable en route. Patient is somnolent on presentation, rouses briefly to voice and light touch. He is unable to provide any meaningful history. Per record review the patient has been seen in the ED multiple times for polysubstance abuse. Vitals reviewed. On exam the patient intermittently follows commands, athletic build, no focal neuro deficits, CTAB, abdomen soft, nontender, no LE edema. IV was established. Patient was administered 1L NS IV. The nurse spoke with Poison Control who recommend monitoring the patient for 6 hours, watch for long QT as it can increase risk of seizure. EKG rate 53, sinus bradycardia. CO interval 184, QRS 109, QTc 456. No acute ST changes. Reviewed by Dr. Phillip. Cardiac enzymes negative 1. CXR: No acute disease per radiology read. CBC: No acute abnormalities. CMP: BUN 20, creatinine 1.9 INR: 1.0. Ammonia 28 TSH: 135 UA: no culture indicated. Tox screen: Negative for salicylates, acetaminophen or EtOH toxicity. UDS: negative Patient was administered a second liter of normal saline IV. Alert and oriented at 1630, states that he took 450 mg Seroquel this AM to sleep. Denies SI, HI, recent drug use. I'd like him to be evaluated by psych, however the patient declines. He is stable and discharged home. Diagnosis Primary Impression: Altered mental status Qualified Code: R41.82 - Altered mental status, unspecified altered mental status type Referrals: Primary Care Physician Patient Instructions: Altered Mental Status (ED), General Instructions Additional Instructions: Rest, hydrate. Follow-up with the primary care provider. Return to the ED for any urgent or emergent medical condition. Disposition: 01 DISCHARGE HOME Condition: Stable Marina Sandra Apr 23, 2017 13:02
[2017-04-23 13:03] VITALS: BP 116/68; PULSE 72; RESP 18; O2SAT 96
[2017-04-23 13:15] VITALS: O2SAT 97
[2017-04-23] MEDS ORDERED: SODIUM CHLOR 0.9% 1000 ML INJ 1,000 ML IV SCH (13:20)
[2017-04-23] MEDS ORDERED: SODIUM CHLORIDE 0.9% FLUSH 5 ML FLUSH IV FLUSH PRN (13:30)
--- NOTE | 2017-04-23 13:45 | RADRPT ---
EXAM DATE/TIME: 04/23/2017 13:22 [facility] COMPARISON: CHEST SINGLE AP, December 16, 2016, 23:47. INDICATIONS : Syncope. MEDICAL HISTORY : None. SURGICAL HISTORY : None. ENCOUNTER: Initial ACUITY: 1 day PAIN SCORE: Non-responsive. LOCATION: Bilateral chest FINDINGS: A single view of the chest demonstrates the lungs to be symmetrically aerated without evidence of mas s, infiltrate or effusion. The cardiomediastinal contours are unremarkable. Osseous structures are intact. CONCLUSION: No acute disease. Van Marquez MD FACR on April 23, 2017 at 13:43 Board Certified Radiologist. This report was verified electronically.
[2017-04-23 13:52] LABS: AUTOMATED NEUTROPHIL # 6.2 TH/MM3 (1.8-7.7); BASOPHIL # 0.1 TH/MM3 (0-0.2); BASOPHIL % 1.1 % (0.0-2.0); EOSINOPHIL # 0.2 TH/MM3 (0-0.4); EOSINOPHIL % 2.3 % (0.0-4.0); HEMATOCRIT 45.6 % (39.0-51.0); HEMO FLAGS DIFF FINAL; LYMPH % 16.9 % (9.0-44.0); LYMPHOCYTE # 1.5 TH/MM3 (1.0-4.8); MEAN CORPUSCULAR HEMOGLOBIN 28.6 PG (27.0-34.0); MEAN CORPUSCULAR HGB CONC 33.3 % (32.0-36.0); MONO % 10.3 % (0.0-8.0); NEUT % 69.4 % (16.0-70.0); PLATELET COUNT 305 TH/MM3 (150-450); RED CELL DISTRIBUTION WIDTH 15.7 % (11.6-17.2); WHITE BLOOD COUNT 8.9 TH/MM3 (4.0-11.0)
[2017-04-23 14:02] LABS: APTT (PATIENT) 23.5 SEC (24.3-30.1); PROTHROMBIN TIME - PATIENT 11.2 SEC (9.8-11.6)
[2017-04-23 14:10] LABS: ANION GAP 8 MEQ/L (5-15); AST (GOT) 40 U/L (15-37); BICARBONATE 26.7 MEQ/L (21.0-32.0); BLOOD UREA NITROGEN 20 MG/DL (7-18); CHLORIDE 101 MEQ/L (98-107); GLOMERULAR FILTRATION RATE 39 ML/MIN (>89); POTASSIUM 4.4 MEQ/L (3.5-5.1); SODIUM (NA) 136 MEQ/L (136-145)
[2017-04-23 14:11] LABS: ALT (GPT) 54 U/L (12-78)
[2017-04-23 14:21] LABS: ACETAMINOPHEN LESS THAN 2.0 MCG/ML (10.0-30.0); ALKALINE PHOSPHATASE 70 U/L (45-117); CREATINE KINASE 293 U/L (39-308); TOTAL BILIRUBIN ADULT 0.5 MG/DL (0.2-1.0)
--- NOTE | 2017-04-23 15:04 | RADRPT ---
EXAM DATE/TIME: 04/23/2017 14:47 [facility] COMPARISON: CT BRAIN W/O CONTRAST, January 13, 2017, 22:43. INDICATIONS : Altered mental status. RADIATION DOSE: 36.06 CTDIvol (mGy) MEDICAL HISTORY : Cocaine use. SURGICAL HISTORY : None. ENCOUNTER: Initial ACUITY: 1 day PAIN SCALE: Non-responsive LOCATION: cranial TECHNIQUE: Multiple contiguous axial images were obtained of the head. Using automated exposure control and adj ustment of the mA and/or kV according to patient size, radiation dose was kept as low as reasonably a chievable to obtain optimal diagnostic quality images. DICOM format image data is available electro nically for review and comparison. FINDINGS: CEREBRUM: The ventricles are normal for age. No evidence of midline shift, mass lesion, hemorrhage or acute in farction. No extra-axial fluid collections are seen. POSTERIOR FOSSA: The cerebellum and brainstem are intact. The 4th ventricle is midline. The cerebellopontine angle i s unremarkable. EXTRACRANIAL: The visualized portion of the orbits is intact. SKULL: The calvaria is intact. No evidence of skull fracture. CONCLUSION: No acute disease. Bran Mcgee MD on April 23, 2017 at 15:01 Board Certified Radiologist. This report was verified electronically.
[2017-04-23 16:00] VITALS: BP 118/73; PULSE 58; RESP 14
[2017-04-23] MEDS ORDERED: SODIUM CHLOR 0.9% 1000 ML INJ 1,000 ML IV ONE (16:45)
[2017-04-23 17:26] LABS: BLOOD, URINE NEG (NEG); COMMENT (UR) CATH-CULT NOT IND; CULTURE IF INDICATED CATH CULTURE NOT IND; GLUCOSE,URINE NEG (NEG); GRANULAR CAST, URINE 25 /lpf; HYALINE CAST, URINE 92 /lpf (RARE); KETONE, URINE NEG (NEG); MUCUS URINE FEW /lpf (OCC); NITRITE,URINE NEG (NEG); PH, URINE 5.5 (5.0-8.5); SQUAMOUS EPITHELIAL CELL URINE 1 /hpf (0-5); URINE COLOR YELLOW (YELLW/STRAW)
[2017-04-23 18:30] LABS: AMPHETAMINE, URINE NEG (NEG); BARBITURATES, URINE NEG (NEG); COCAINE, URINE NEG (NEG)
[2017-04-23 19:56] VITALS: BP 113/61; PULSE 58; RESP 16; O2SAT 98
--- NOTE | 2017-04-24 15:25 | EKG ---
Date Performed: 04/23/2017 Time Performed: 16:15:36 PTAGE: 46 years EKG: SINUS BRADYCARDIA POSSIBLE LEFT VENTRICULAR HYPERTROPHY Baseline artifact present. No signi ficant change from prior. ABNORMAL ECG PREVIOUS TRACING : 12/16/2016 23.41 DOCTOR: Ramon Varela Interpretating Date/Time 04/24/2017 15:23:50
== END 2017-04-23 20:01 | disposition home or self-care (01) ==
LOC: NEPE 12:18
DX: R41.82 Altered mental status, unspecified (principal); R00.1 Bradycardia, unspecified; Z79.899 Other long term (current) drug therapy
CPT/HCPCS: 70450; 71010; 80053; 80307; 81001; 82140; 82550; 84443; 84484; 85025; 85610; 85730; 93005; 99285; J7030

== ENCOUNTER 2017-10-19 17:00 | Emergency (ER) | payer MEDICAID ==
[~2017-10-19] VITALS: Ht 185.4 cm; Wt 90.9 kg
[~2017-10-19 17:00] MED LIST changes: +MELA5 PO; -MELA5TAB15 PO
[2017-10-19 17:20] VITALS: BP 152/89; PULSE 92; RESP 18; O2SAT 95
[2017-10-19] MEDS ORDERED: SODIUM CHLOR 0.9% 1000 ML INJ 1,000 ML IV ONE ×2 (17:20→20:45)
[2017-10-19 17:26] VITALS: BP 152/89; PULSE 91; RESP 18; TEMP 98.3; O2SAT 95
[2017-10-19] MEDS ORDERED: SODIUM CHLORIDE 0.9% FLUSH 10 ML FLUSH IVF PRN (17:30)
--- NOTE | 2017-10-19 17:30 | PD ---
HPI Chief Complaint: POSSIBLE OVERDOSE Time Seen by Provider: 17:07 Travel History International Travel<30 days: No Contact w/Intl Traveler<30days: No History of Present Illness HPI Patient is a 47-year-old male presenting to the emergency department via EMS for evaluation of possible overdose. Patient's called 911 when she found him unresponsive on the floor of their home. She states that he was having seizure-like activity and wasn't breathing. When EMS arrived on the scene he was asleep on the floor. When he was aroused he became combative patient does admit to smoking synthetic marijuana however he states it was not K2 he also admits to drinking 4 beers today and states he just blacked out. He has no physical complaints at this time. He denies any intentional overdose, suicidal ideations or hallucinations. Symptom onset was sudden, no alleviating factors. Patient denies any IV drug use. He further denies any medical history, medication allergies or surgeries. PFSH Past Medical History Anxiety: Yes Psychiatric: Yes Past Surgical History Other Surgery: No Social History Alcohol Use: Yes Tobacco Use: No Substance Use: Yes (MARIJUANA) Allergies-Medications (Allergen,Severity, Reaction): Coded Allergies: No Known Allergies (Verified , 01/13/17) Reported Meds & Prescriptions Reported Meds & Active Scripts Active Reported Melatonin 5 Mg Tab 5 Mg PO HS Seroquel (Quetiapine Fumarate) 400 Mg Tab 400 Mg PO HS Review of Systems Except as stated in HPI: all other systems reviewed are Neg Cardiovascular: Positive: Tachycardia Neurologic: Positive: Syncope Psychiatric: Positive: Substance Abuse Physical Exam Narrative GENERAL: Well-developed, well-nourished, alert male. Resting comfortably in no acute distress. SKIN: Warm and dry. 0.5 cm Abrasion to posterior scalp HEAD: Atraumatic. Normocephalic. EYES: Pupils equal and round. No scleral icterus. No injection or drainage. ENT: No nasal bleeding or discharge. Mucous membranes pink and moist. NECK: Trachea midline. No JVD. CARDIOVASCULAR: Tachycardic RESPIRATORY: No accessory muscle use. Clear to auscultation. Breath sounds equal bilaterally. GASTROINTESTINAL: Abdomen soft, non-tender, nondistended. Hepatic and splenic margins not palpable. MUSCULOSKELETAL: Extremities without clubbing, cyanosis, or edema. No obvious deformities. No spinal tenderness or step-off noted. NEUROLOGICAL: Awake and alert. No obvious cranial nerve deficits. Motor grossly within normal limits. Five out of 5 muscle strength in the arms and legs. Normal speech. PSYCHIATRIC: Appropriate mood and affect; insight and judgment normal. Data Data Last Documented VS Vital Signs Date Time Temp Pulse Resp B/P (MAP) Pulse Ox O2 Delivery O2 Flow Rate FiO2 10/19/17 19:06 86 12 98 Room Air 10/19/17 19:05 136/73 (94) 10/19/17 17:26 98.3 Orders Orders Electrocardiogram (10/19/17 17:20) Complete Blood Count With Diff (10/19/17 17:20) Comprehensive Metabolic Panel (10/19/17 17:20) Ct Brain W/O Iv Contrast(Rout) (10/19/17 17:20) Blood Glucose (10/19/17 17:20) Iv Access Insert/Monitor (10/19/17 17:20) Ecg Monitoring (10/19/17 17:20) Oximetry (10/19/17 17:20) Sodium Chloride 0.9% Flush (Ns Flush) (10/19/17 17:30) Sodium Chlor 0.9% 1000 Ml Inj (Ns 1000 M (10/19/17 17:20) Drug Screen, Random Urine (10/19/17 17:20) Alcohol (Ethanol) (10/19/17 17:20) Ct Cerv Spine W/O Contrast (10/19/17 ) Ckmb (Isoenzyme) Profile (10/19/17 17:33) Troponin I (10/19/17 17:33) Potassium Chlor 20 Meq Premix (Kcl 20 Me (10/19/17 20:00) CKMB (10/19/17 17:33) CKMB% (10/19/17 17:33) Sodium Chlor 0.9% 1000 Ml Inj (Ns 1000 M (10/19/17 20:45) Ed Discharge Order (10/19/17 21:36) Labs Laboratory Tests Test 10/19/17 17:33 White Blood Count 5.8 TH/MM3 Red Blood Count 4.45 MIL/MM3 Hemoglobin 13.9 GM/DL Hematocrit 40.7 % Mean Corpuscular Volume 91.4 FL Mean Corpuscular Hemoglobin 31.3 PG Mean Corpuscular Hemoglobin Concent 34.3 % Red Cell Distribution Width 12.7 % Platelet Count 219 TH/MM3 Mean Platelet Volume 8.3 FL Neutrophils (%) (Auto) 71.1 % Lymphocytes (%) (Auto) 19.5 % Monocytes (%) (Auto) 6.6 % Eosinophils (%) (Auto) 1.7 % Basophils (%) (Auto) 1.1 % Neutrophils # (Auto) 4.1 TH/MM3 Lymphocytes # (Auto) 1.1 TH/MM3 Monocytes # (Auto) 0.4 TH/MM3 Eosinophils # (Auto) 0.1 TH/MM3 Basophils # (Auto) 0.1 TH/MM3 CBC Comment DIFF FINAL Differential Comment Blood Urea Nitrogen 13 MG/DL Creatinine 1.55 MG/DL Random Glucose 114 MG/DL Total Protein 6.7 GM/DL Albumin 3.5 GM/DL Calcium Level 7.8 MG/DL Alkaline Phosphatase 88 U/L Aspartate Amino Transf (AST/SGOT) 39 U/L Alanine Aminotransferase (ALT/SGPT) 41 U/L Total Bilirubin 0.2 MG/DL Sodium Level 140 MEQ/L Potassium Level 3.9 MEQ/L Chloride Level 105 MEQ/L Carbon Dioxide Level 29.5 MEQ/L Anion Gap 6 MEQ/L Estimat Glomerular Filtration Rate 49 ML/MIN Total Creatine Kinase 540 U/L Creatine Kinase MB 5.6 NG/ML Creatine Kinase MB % 1.0 % Troponin I LESS THAN 0.02 NG/ML Urine Opiates Screen NEG Urine Barbiturates Screen NEG Urine Amphetamines Screen POS Urine Benzodiazepines Screen NEG Urine Cocaine Screen NEG Urine Cannabinoids Screen POS Ethyl Alcohol Level 22 MG/DL MDM Medical Decision Making Medical Screen Exam Complete: Yes Emergency Medical Condition: Yes Interpretation(s) Last Impressions Head CT 10/19/17 1720 Signed Impressions: Service Date/Time: September 18:41 - CONCLUSION: Negative noncontrast head CT. Edwin High MD Cervical Spine CT 10/19/17 0000 Signed Impressions: Service Date/Time: September 18:41 - CONCLUSION: No acute abnormality demonstrated. Intact cervical spine. Degenerative changes at C5/ C6. Edwin High MD Laboratory Tests Test 10/19/17 17:33 White Blood Count 5.8 TH/MM3 Red Blood Count 4.45 MIL/MM3 Hemoglobin 13.9 GM/DL Hematocrit 40.7 % Mean Corpuscular Volume 91.4 FL Mean Corpuscular Hemoglobin 31.3 PG Mean Corpuscular Hemoglobin Concent 34.3 % Red Cell Distribution Width 12.7 % Platelet Count 219 TH/MM3 Mean Platelet Volume 8.3 FL Neutrophils (%) (Auto) 71.1 % Lymphocytes (%) (Auto) 19.5 % Monocytes (%) (Auto) 6.6 % Eosinophils (%) (Auto) 1.7 % Basophils (%) (Auto) 1.1 % Neutrophils # (Auto) 4.1 TH/MM3 Lymphocytes # (Auto) 1.1 TH/MM3 Monocytes # (Auto) 0.4 TH/MM3 Eosinophils # (Auto) 0.1 TH/MM3 Basophils # (Auto) 0.1 TH/MM3 CBC Comment DIFF FINAL Differential Comment Blood Urea Nitrogen 13 MG/DL Creatinine 1.55 MG/DL Random Glucose 114 MG/DL Total Protein 6.7 GM/DL Albumin 3.5 GM/DL Calcium Level 7.8 MG/DL Alkaline Phosphatase 88 U/L Aspartate Amino Transf (AST/SGOT) 39 U/L Alanine Aminotransferase (ALT/SGPT) 41 U/L Total Bilirubin 0.2 MG/DL Sodium Level 140 MEQ/L Potassium Level 3.9 MEQ/L Chloride Level 105 MEQ/L Carbon Dioxide Level 29.5 MEQ/L Anion Gap 6 MEQ/L Estimat Glomerular Filtration Rate 49 ML/MIN Total Creatine Kinase 540 U/L Creatine Kinase MB 5.6 NG/ML Creatine Kinase MB % 1.0 % Troponin I LESS THAN 0.02 NG/ML Urine Opiates Screen NEG Urine Barbiturates Screen NEG Urine Amphetamines Screen POS Urine Benzodiazepines Screen NEG Urine Cocaine Screen NEG Urine Cannabinoids Screen POS Ethyl Alcohol Level 22 MG/DL Vital Signs Date Time Temp Pulse Resp B/P (MAP) Pulse Ox O2 Delivery O2 Flow Rate FiO2 10/19/17 17:33 77 18 95 Room Air 10/19/17 17:33 77 18 95 Room Air 10/19/17 17:26 98.3 91 18 152/89 (110) 95 10/19/17 17:20 92 18 152/89 (110) 95 Room Air Differential Diagnosis Overdose versus substance abuse versus intoxication versus metabolic abnormality versus seizure disorder versus syncope versus other Narrative Course Patient is a 47-year-old male that presented to emergency department tonight for evaluation of possible overdose. Patient is alert and cooperative on arrival, he admits to smoking a synthetic marijuana as well as drinking 4 beers today. Patient's vital signs are stable. He was brought into the emergency department on a backboard and in a cervical collar due to possible fall. Patient is no focal deficits on exam. Labs and imaging ordered and pending. CBC with no acute findings Chemistry with no acute findings Alcohol level is 22, urine drug screen is positive for amphetamines and marijuana. CT scan of the brain is negative for acute abnormality, CT scan of the cervical spine shows an intact cervical spine with degenerative changes at C5/C6. EKG shows sinus rhythm with a ventricular rate of 88. Cardiac enzymes are negative 1 set Patient was given a total of 2 L of IV fluids. Discussed findings with my attending physician. Patient is medically cleared time, he will be allowed to "sleep it off" and when he demonstrates sobriety he' ll be discharged home. presented to the emergency department to bring patient home. Patient is alert and oriented, cooperative. He does not appear to be intoxicated and appears competent to make his own decisions. Patient is stable for discharge. Diagnosis Primary Impression: Substance abuse Referrals: Primary Care Physician [facility] Patient Instructions: Cannabis Abuse (ED), General Instructions, Polysubstance Abuse (ED) Additional Instructions: Avoid illicit drug use Follow[facility]up at [facility] Follow-up with your primary doctor Return to emergency department for any new or worsening symptoms Med/Other Pt SpecificInfo: No Change to Meds Disposition: 01 DISCHARGE HOME Condition: Stable Vee Mak Oct 19, 2017 17:30
[2017-10-19 17:33] VITALS: PULSE 77; RESP 18; O2SAT 95
[2017-10-19 18:13] LABS: AUTOMATED NEUTROPHIL # 4.1 TH/MM3 (1.8-7.7); BASOPHIL # 0.1 TH/MM3 (0-0.2); BASOPHIL % 1.1 % (0.0-2.0); EOSINOPHIL # 0.1 TH/MM3 (0-0.4); EOSINOPHIL % 1.7 % (0.0-4.0); HEMATOCRIT 40.7 % (39.0-51.0); HEMOGLOBIN 13.9 GM/DL (13.0-17.0); LYMPH % 19.5 % (9.0-44.0); LYMPHOCYTE # 1.1 TH/MM3 (1.0-4.8); MEAN CELL VOLUME 91.4 FL (80.0-100.0); MEAN CORPUSCULAR HEMOGLOBIN 31.3 PG (27.0-34.0); MEAN CORPUSCULAR HGB CONC 34.3 % (32.0-36.0); MEAN PLATELET VOLUME 8.3 FL (7.0-11.0); MONO % 6.6 % (0.0-8.0); MONOCYTE # 0.4 TH/MM3 (0-0.9); NEUT % 71.1 % (16.0-70.0); PLATELET COUNT 219 TH/MM3 (150-450); RED BLOOD COUNT 4.45 MIL/MM3 (4.50-5.90); RED CELL DISTRIBUTION WIDTH 12.7 % (11.6-17.2); WHITE BLOOD COUNT 5.8 TH/MM3 (4.0-11.0)
[2017-10-19 18:26] LABS: ALBUMIN 3.5 GM/DL (3.4-5.0); ALT (GPT) 41 U/L (12-78); AST (GOT) 39 U/L (15-37); BICARBONATE 29.5 MEQ/L (21.0-32.0); BLOOD UREA NITROGEN 13 MG/DL (7-18); CALCIUM 7.8 MG/DL (8.5-10.1); CHLORIDE 105 MEQ/L (98-107); CREATININE 1.55 MG/DL (0.60-1.30); GLOMERULAR FILTRATION RATE 49 ML/MIN (>89); GLUCOSE,RANDOM 114 MG/DL (74-106); SODIUM (NA) 140 MEQ/L (136-145)
[2017-10-19 18:28] LABS: ALKALINE PHOSPHATASE 88 U/L (45-117); TOTAL BILIRUBIN ADULT 0.2 MG/DL (0.2-1.0); TOTAL PROTEIN 6.7 GM/DL (6.4-8.2)
--- NOTE | 2017-10-19 18:59 | RADRPT ---
EXAM DATE/TIME: 10/19/2017 18:41 [facility] COMPARISON: No previous studies available for comparison. INDICATIONS : Syncopal episode, possible overdose. RADIATION DOSE: 37.41 CTDIvol (mGy) MEDICAL HISTORY : None SURGICAL HISTORY : None. ENCOUNTER: Initial ACUITY: 1 day PAIN SCALE: Non-responsive LOCATION: cranial TECHNIQUE: Multiple contiguous axial images were obtained of the head. Using automated exposure control and adj ustment of the mA and/or kV according to patient size, radiation dose was kept as low as reasonably a chievable to obtain optimal diagnostic quality images. DICOM format image data is available electro nically for review and comparison. FINDINGS: CEREBRUM: The ventricles are normal for age. No evidence of midline shift, mass lesion, hemorrhage or acute in farction. No extra-axial fluid collections are seen. POSTERIOR FOSSA: The cerebellum and brainstem are intact. The 4th ventricle is midline. The cerebellopontine angle i s unremarkable. EXTRACRANIAL: The visualized portion of the orbits is intact. SKULL: The calvaria is intact. No evidence of skull fracture. CONCLUSION: Negative noncontrast head CT. Edwin High MD on October 19, 2017 at 18:57 Board Certified Radiologist. This report was verified electronically.
--- NOTE | 2017-10-19 19:04 | RADRPT ---
EXAM DATE/TIME: 10/19/2017 18:41 [facility] COMPARISON: No previous studies available for comparison. INDICATIONS : Syncopal episode, possible overdose. RADIATION DOSE: 15.54 CTDIvol (mGy) MEDICAL HISTORY : Non-responsive. SURGICAL HISTORY : Non-responsive. ENCOUNTER: Initial ACUITY: 1 day PAIN SCALE: Non-responsive LOCATION: neck TECHNIQUE: Volumetric scanning of the cervical spine was performed. Multiplanar reconstructions in the sagittal, coronal and oblique axial planes were performed. Using automated exposure control and adjustment o f the mA and/or kV according to patient size, radiation dose was kept as low as reasonably achievable to obtain optimal diagnostic quality images. DICOM format image data is available electronically f or review and comparison. FINDINGS: VERTEBRAE: Normal vertebral body height. ALIGNMENT: No evidence of subluxation. C2-C3: The bony spinal canal is normal in size. No evidence of disc bulge or herniation. The neural forami na are bilaterally patent. C3-C4: The bony spinal canal is normal in size. No evidence of disc bulge or herniation. The neural forami na are bilaterally patent. C4-C5: The bony spinal canal is normal in size. No evidence of disc bulge or herniation. The neural forami na are bilaterally patent. C5-C6: Mild to moderate disc space narrowing with a small, broad posterior disc osteophyte complex and mild bilateral uncovertebral and facet osteoarthritis. There slight foraminal encroachment, mostly on the left. C6-C7: The bony spinal canal is normal in size. No evidence of disc bulge or herniation. The neural forami na are bilaterally patent. C7-T1: The bony spinal canal is normal in size. No evidence of disc bulge or herniation. The neural forami na are bilaterally patent. CONCLUSION: No acute abnormality demonstrated. Intact cervical spine. Degenerative changes at C5/C6. Edwin High MD on October 19, 2017 at 19:00 Board Certified Radiologist. This report was verified electronically.
[2017-10-19 19:05] VITALS: BP 136/73; PULSE 81; RESP 18; O2SAT 98
[2017-10-19] MEDS ORDERED: POTASSIUM CHLOR 20 MEQ PREMIX 100 ML IV ONE (20:00)
[2017-10-19 20:40] LABS: TROPONIN I LESS THAN 0.02 NG/ML (0.02-0.05)
--- NOTE | 2017-10-20 09:56 | EKG ---
Date Performed: 10/19/2017 Time Performed: 17:47:31 PTAGE: 47 years EKG: Sinus rhythm POSSIBLE LEFT ATRIAL ENLARGEMENT NONSPECIFIC ST & T-WAVE ABNORMALITY BORDERLINE ECG PREVIOUS TRACING : 04/23/2017 16.15 Compared to previous tracing, heart rate has increased, bas togn artefact is no longer present. DOCTOR: Valdo Paris Interpretating Date/Time 10/20/2017 09:55:27
== END 2017-10-19 22:30 | disposition home or self-care (01) ==
LOC: NEPC 17:00
DX: F12.10 Cannabis abuse, uncomplicated (principal); F15.10 Other stimulant abuse, uncomplicated; R00.0 Tachycardia, unspecified; F41.9 Anxiety disorder, unspecified
CPT/HCPCS: 70450; 72125; 80053; 80307; 82550; 82552; 84484; 85025; 93005; 96360; 99285; J7030